=== PATIENT | female | born 1930 | race Caucasian/White ===

== ENCOUNTER 2016-08-25 18:42 | Emergency (ER) | payer MEDICARE, BC ==
[2016-08-25 18:42] VITALS: BP 174/86
--- OUTSIDE RECORDS SUMMARY | 2016-08-25 22:09 | XMS REPORT | Continuity of Care Document ---
:1930 Author Organization [facility] ([facility]) Address [address] [place] [address] Phone [phone] Care Team Providers Name Role Phone Kathy Grace Primary Care Provider [phone] Source Comments This disclosure is being made pursuant to the Care Everywhere program, applicable federal and state laws, and may not contain all informaitonavailable regarding this patient.[facility] ([facility]) Active Allergies and Adverse Reactions Allergen Noted Date Severity Reactions Comments Penicillins 02/15/2015 Unknown Current Medications Prescription Sig. Disp. Refills Start Date End Date Status HYDROcodone-acetaminophe take 1 tablet by 02/24/2014 Active n 5-325 mg per tablet oral route every 6 hours as needed for pain lisinopril 2.5 mg tablet Take 1 Tab by mouth 04/28/2013 Active daily metoPROLol succinate 25 Take 1 Tab by mouth 10/12/2013 Active mg XL tablet daily pantoprazole 40 mg EC Take 40 mg by mouth Active tablet daily aspirin 81 mg EC tablet Take 1 Tab (81 mg 30 Tab 11 02/17/2015 Active total) by mouth daily atorvastatin 20 mg Take 20 mg by mouth 08/25/2015 Active tablet every evening. levothyroxine 125 mcg Take 125 mcg by 08/25/2015 Active tablet mouth every morning before breakfast. tiZANidine 2 mg tablet Take 2 mg by mouth 08/10/2015 Active 3 times daily as needed. acetaminophen 325 mg Take 650 mg by Active tablet mouth 4 times daily. menthol (ARCTIC RELIEF) Apply topically as Active 3.5 % topical gel needed. calcium carbonate Take 1 tablet by Active (CALTRATE 600 + D) 1500 mouth 2 times mg (600 mg Ca) daily. -cholecalciferol 800 unit chewable tablet ondansetron 4 mg tablet Take 4 mg by mouth Active every 6 hours as needed. oxybutynin 5 mg tablet Take 5 mg by mouth Active daily. zolpiDEM 5 mg tablet Take by mouth at Active bedtime as needed. Active Problems Problem Noted Date CAD in [place] artery 02/19/2015 Overview: 1. Coronary artery disease with complex mid-LAD lesion status post overlapping VeriFLEX 3.5 x 12 and 2.75 x 12 mm bare-metal stents. 2. 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 3. Ischemic cardiomyopathy with anterior hypokinesis and EF of 45%. 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 Pulse 60 07/10/2016 11:29 AM SCREEN MACHINE OPERATOR Temperature - - Respiratory Rate - - Height 1.524 m (5') 10/06/2015 11:10 AM CDT Weight 68.04 kg (150 lb) 07/10/2016 11:29 AM SCREEN MACHINE OPERATOR Body Mass Index 29.3 07/10/2016 11:29 AM SCREEN MACHINE OPERATOR Oxygen Saturation 95% 10/06/2015 11:10 AM CDT Plan of Care Date Type Specialty Providers Description 11/27/2016 Appointment [facility], Chief Comp: Patient MD Reported Reason For [address] [place] [address] [phone] (Fax) Health Maintenance Due Date Last Done Comments Hepatitis B Vaccine (1 of 3 - Primary Series) 1930 Tdap Vaccine 1941 Lipid Disorder Screening 1948 Td Vaccine 1948 Zoster Vaccine 1990 Pneumococcal Vaccine (1 of 2 - PCV13) 1995 Influenza Vaccine: Seasonal (#1) 02/05/2016 05/01/2015 Results from Last 3 Months Not on file
--- OUTSIDE RECORDS SUMMARY | 2016-08-25 22:09 | XMS REPORT | CCD ---
:1930 Author Name IVELISSE PARISI Address [address] [facility] Unavailable [place], [place] [id number] Care Team Providers Name Role Phone MIAH BUSTOS Attending Physician Unavailable Vital Signs Unknown or Not Available. Allergies Allergy Code Allergy Type Reaction Status PCN (penicillin) 0 Drug allergy Active Procedures Unknown or Not Available. History of Immunizations Immunization Code Date pneumococcal, unspecified formulation 109 Unknown Influenza, high dose seasonal 135 05/01/2015 no vaccine administered 998 1930 Problems Problem Code Start Date Resolved Date Status ACUTE SUBENDOCARDIAL INFARCTION, INITIAL 36660219 11/14/2012 Active EPISODE OF CARE HYPOTHYROIDISM 49446496 11/14/2012 Active GI bleeding 50187597 Active Results Unknown or Not Available. Active Medications Medication Code Dose Units Frequency Route Modification Start Date/Time Tylenol ES 500MG 691650 2 TABLET THREE TIMES A BY MOUTH 12/08/2014 Oral Tablet DAY 09:39 Prescription Detail TAKE 2 TABLET BY MOUTH THREE TIMES A DAY for arthritis pain Atorvastatin Calcium 20MG 793083 20 MILLIGRAMS BEFORE BED ORAL 2014 09:37 Oral Tablet Prescription Detail TAKE 20 MILLIGRAMS ORAL BEFORE BED Calcium 551568 600 MILLIGRAMS TWICE DAILY BY MOUTH 12/08/2014 09:37 Carbonate/Vitamin D W/FOOD 600MG-400IU Oral Tablet Prescription Detail TAKE 600 MILLIGRAMS BY MOUTH TWICE DAILY W/FOOD Centrum [id number] Oral Tablet 6406385 1 EACH DAILY ORAL 10/2014 09:37 Prescription Detail TAKE 1 EACH ORAL DAILY Furosemide 20MG Oral Tablet 974019 20 MILLIGRAMS DAILY ORAL 12/08/2014 09:37 Prescription Detail TAKE 20 MILLIGRAMS ORAL DAILY HYDROcodone bitartrate-acetaminophen 897465 1 EACH NEEDED ORAL 12/08 09:37 5MG-500MG Oral Tablet Prescription Detail TAKE 1 EACH ORAL NEEDED Levothyroxine 125MCG Oral Tablet 303054 125 MCG DAILY ORAL 12/08/2014 09:37 Prescription Detail TAKE 125 MCG ORAL DAILY Lisinopril 2.5MG Oral Tablet 765640 2.5 MILLIGRAMS DAILY ORAL 2014 09:37 Prescription Detail TAKE 2.5 MILLIGRAMS ORAL DAILY Metoprolol Succinate 25MG Oral 712666 25 MILLIGRAMS DAILY ORAL 2014 09:37 Tablet, Extended Release Prescription Detail TAKE 25 MILLIGRAMS ORAL DAILY Nitroglycerin 0.4MG 614940 0.4 MILLIGRAMS NEEDED SUBLINGUAL 2014 09:37 Sublingual Tablet Prescription Detail PL[address] 0.4 MILLIGRAMS SUBLINGUAL NEEDED Protonix 40MG Oral 326506 40 MILLIGRAMS DAILY BEFORE MEAL BY MOUTH 10/2014 09:37 Tablet, Enteric Coated Prescription Detail TAKE 40 MILLIGRAMS BY MOUTH DAILY BEFORE MEAL Sucralfate 1GM Oral 997899 1 GM FOUR TIMES DAILY AC BY MOUTH 2014 09:37 Tablet Prescription Detail TAKE 1 GM BY MOUTH FOUR TIMES DAILY AC Medications Administered During Visit Unknown or Not Available. Encounters Encounter Diagnosis Diagnosis Code Start Date Primary osteoarthritis, right shoulder [id number] 01/30/2016 Social History Smoking Status Code Start Date End Date Never smoker [id number] Patient Decision Aids Unknown or Not Available. Discharge Instructions You were admitted to [facility] on 01/30/2016 13:22 with a principal diagnosis of Primary osteoarthritis, right shoulder You were discharged from [facility] on 01/30/2016 13:22 Should you have any questions prior to discharge, please contact a member of your healthcare team. If you have left the hospital and have any questions, please contact your primary care physician. Chief Complaint and Reason For Visit Unknown or Not Available. Function Status Unknown or Not Available. Plan of Care Unknown or Not Available. Referral/Transition of Care Unknown or Not Available.
--- OUTSIDE RECORDS SUMMARY | 2016-08-25 22:09 | XMS REPORT | CCD ---
:1930 Author Name IVELISSE PARISI Address [address] [facility] Unavailable [place], [place] [id number] Care Team Providers Name Role Phone MIAH [...] Resolved Date Status ACUTE SUBENDOCARDIAL INFARCTION, INITIAL 53323475 11/14/2012 Active EPISODE OF CARE HYPOTHYROIDISM 07655080 11/14/2012 Active GI bleeding 25326768 Active Results Unknown or Not Available. Active Medications Medication Code Dose Units Frequency Route Modification Start Date/Time Tylenol ES 500MG 684452 2 TABLET THREE TIMES A BY MOUTH 12/08/2014 Oral Tablet DAY 09:39 Prescription Detail TAKE 2 TABLET BY MOUTH THREE TIMES A DAY for arthritis pain Atorvastatin Calcium 20MG 133246 20 MILLIGRAMS BEFORE BED ORAL 2014 09:37 Oral Tablet Prescription Detail TAKE 20 MILLIGRAMS ORAL BEFORE BED Calcium 477979 600 MILLIGRAMS TWICE DAILY BY MOUTH 12/08/2014 09:37 Carbonate/Vitamin D W/FOOD 600MG-400IU Oral Tablet Prescription Detail TAKE 600 MILLIGRAMS BY MOUTH TWICE DAILY W/FOOD Centrum [id number] Oral Tablet 5882863 1 EACH DAILY ORAL 10/2014 09:37 Prescription Detail TAKE 1 EACH ORAL DAILY Furosemide 20MG Oral Tablet 643181 20 MILLIGRAMS DAILY ORAL 12/08/2014 09:37 Prescription Detail TAKE 20 MILLIGRAMS ORAL DAILY HYDROcodone bitartrate-acetaminophen 134028 1 EACH NEEDED ORAL 12/08 09:37 5MG-500MG Oral Tablet Prescription Detail TAKE 1 EACH ORAL NEEDED Levothyroxine 125MCG Oral Tablet 212641 125 MCG DAILY ORAL 12/08/2014 09:37 Prescription Detail TAKE 125 MCG ORAL DAILY Lisinopril 2.5MG Oral Tablet 921927 2.5 MILLIGRAMS DAILY ORAL 2014 09:37 Prescription Detail TAKE 2.5 MILLIGRAMS ORAL DAILY Metoprolol Succinate 25MG Oral 518763 25 MILLIGRAMS DAILY ORAL 2014 09:37 Tablet, Extended Release Prescription Detail TAKE 25 MILLIGRAMS ORAL DAILY Nitroglycerin 0.4MG 892371 0.4 MILLIGRAMS NEEDED SUBLINGUAL 2014 09:37 Sublingual Tablet Prescription Detail PLACE 0.4 MILLIGRAMS SUBLINGUAL NEEDED Protonix 40MG Oral 214101 40 MILLIGRAMS DAILY BEFORE MEAL BY MOUTH 10/2014 09:37 Tablet, Enteric Coated Prescription Detail TAKE 40 MILLIGRAMS BY MOUTH DAILY BEFORE MEAL Sucralfate 1GM Oral 584695 1 GM FOUR TIMES DAILY AC BY MOUTH 2014 09:37 Tablet Prescription Detail TAKE 1 GM BY MOUTH FOUR TIMES DAILY AC Medications Administered During Visit Unknown or Not Available. Encounters Encounter Diagnosis Diagnosis Code Start Date Primary osteoarthritis, left shoulder [id number] 02/22/2016 Social History Smoking Status Code Start Date End Date Never smoker [id number] Patient Decision Aids Unknown or Not Available. Discharge Instructions You were admitted to [facility] on 02/22/2016 13:55 with a principal diagnosis of Primary osteoarthritis, left shoulder You were discharged from [facility] on 02/22/2016 13:55 Should you have any questions prior to [...]
--- OUTSIDE RECORDS SUMMARY | 2016-08-25 22:09 | XMS REPORT | CCD ---
:1930 Author Name IVELISSE PARISI Address [address] [facility] Unavailable [place], [place] [id number] Care Team Providers Name Role Phone MIAH BUSTOS Attending Physician Unavailable Vital Signs Unknown or Not Available. Allergies Allergy Code Allergy Type Reaction Status PCN (penicillin) 0 Drug allergy Active Procedures Unknown or Not Available. History of Immunizations Immunization Code Date pneumococcal, unspecified formulation 109 Unknown Problems Problem Code Start Date Resolved Date Status ACUTE SUBENDOCARDIAL INFARCTION, INITIAL 76963356 11/14/2012 Active EPISODE OF CARE HYPOTHYROIDISM 84394569 11/14/2012 Active GI bleeding 81453182 Active Results Unknown or Not Available. Active Medications Medication Code Dose Units Frequency Route Modification Start Date/Time Tylenol ES 500MG 458050 2 TABLET THREE TIMES A BY MOUTH 12/08/2014 Oral Tablet DAY 09:39 Prescription Detail TAKE 2 TABLET BY MOUTH THREE TIMES A DAY for arthritis pain Atorvastatin Calcium 20MG 021119 20 MILLIGRAMS BEFORE BED ORAL 2014 09:37 Oral Tablet Prescription Detail TAKE 20 MILLIGRAMS ORAL BEFORE BED Calcium 357776 600 MILLIGRAMS TWICE DAILY BY MOUTH 12/08/2014 09:37 Carbonate/Vitamin D W/FOOD 600MG-400IU Oral Tablet Prescription Detail TAKE 600 MILLIGRAMS BY MOUTH TWICE DAILY W/FOOD Centrum [id number] Oral Tablet 9267909 1 EACH DAILY ORAL 10/2014 09:37 Prescription Detail TAKE 1 EACH ORAL DAILY Furosemide 20MG Oral Tablet 621247 20 MILLIGRAMS DAILY ORAL 12/08/2014 09:37 Prescription Detail TAKE 20 MILLIGRAMS ORAL DAILY HYDROcodone bitartrate-acetaminophen 519532 1 EACH NEEDED ORAL 12/08 09:37 5MG-500MG Oral Tablet Prescription Detail TAKE 1 EACH ORAL NEEDED Levothyroxine 125MCG Oral Tablet 376244 125 MCG DAILY ORAL 12/08/2014 09:37 Prescription Detail TAKE 125 MCG ORAL DAILY Lisinopril 2.5MG Oral Tablet 176468 2.5 MILLIGRAMS DAILY ORAL 2014 09:37 Prescription Detail TAKE 2.5 MILLIGRAMS ORAL DAILY Metoprolol Succinate 25MG Oral 432458 25 MILLIGRAMS DAILY ORAL 2014 09:37 Tablet, Extended Release Prescription Detail TAKE 25 MILLIGRAMS ORAL DAILY Nitroglycerin 0.4MG 217690 0.4 MILLIGRAMS NEEDED SUBLINGUAL 2014 09:37 Sublingual Tablet Prescription Detail PLACE 0.4 MILLIGRAMS SUBLINGUAL NEEDED Protonix 40MG Oral 693101 40 MILLIGRAMS DAILY BEFORE MEAL BY MOUTH 10/2014 09:37 Tablet, Enteric Coated Prescription Detail TAKE 40 MILLIGRAMS BY MOUTH DAILY BEFORE MEAL Sucralfate 1GM Oral 443459 1 GM FOUR TIMES DAILY AC BY MOUTH 2014 09:37 Tablet Prescription Detail TAKE 1 GM BY MOUTH FOUR TIMES DAILY AC Medications Administered During Visit Unknown or Not Available. Encounters Encounter Diagnosis Diagnosis Code Start Date LOC OSTEOARTH NOS-SHLDER 26024 03/01/2015 Social History Smoking Status Code Start Date End Date Never smoker [id number] Patient Decision Aids Unknown or Not Available. Discharge Instructions You were admitted to [facility] on 03/01/2015 with a principal diagnosis of LOC OSTEOARTH NOS-SHLDER. You were discharged from [facility] on 03/01/2015. Should you have any questions prior to [...]
--- OUTSIDE RECORDS SUMMARY | 2016-08-25 22:09 | XMS REPORT | CCD ---
:1930 Author Name IVELISSE PARISI Address [address] Unavailable [place], [place] [id number] Care Team Providers Name Role Phone MIAH BUSTOS Attending Physician Unavailable Vital Signs Unknown or Not Available. Allergies Allergy Code Allergy Type Reaction Status PCN (penicillin) 0 Drug allergy Active Procedures Unknown or Not Available. History of Immunizations Unknown or Not Available. Problems Problem Code Start Date Resolved Date Status ACUTE SUBENDOCARDIAL INFARCTION, INITIAL 15927423 11/14/2012 Active EPISODE OF CARE HYPOTHYROIDISM 47131382 11/14/2012 Active Results Unknown or Not Available. Active Medications Unknown or Not Available. Medications Administered During Visit Unknown or Not Available. Encounters Encounter Diagnosis Diagnosis Code Start Date OSTEOARTHROS NOS-L LEG 76678 11/29/2014 Social History Smoking Status Code Start Date End Date Never smoker [id number] Patient Decision Aids Unknown or Not Available. Discharge Instructions You were admitted to [facility] on 11/29/2014 with a principal diagnosis of OSTEOARTHROS NOS-L LEG. You were discharged from [facility] on 11/29/2014. Should you have any questions prior to [...]
--- OUTSIDE RECORDS SUMMARY | 2016-08-25 22:09 | XMS REPORT | CCD ---
:1930 Author Name JACK PATRICIA Address [address] [facility] Unavailable [place], [place] [id number] Care Team Providers Name Role Phone SHANNAN HAIRSTON Attending Physician Unavailable RENETTA SOLIS Er Physician 1 Unavailable F., ALESHA FERNANDEZ Registered Nurse Unavailable M., BRITNEY Sahu Registered Nurse Unavailable S., ORLANDO Montoya Registered Nurse Unavailable B., ALESHA Marie Nursing Staff Unavailable L., JUSTIN [facility] Unavailable P., IAN Webster Registered Nurse Unavailable F., KRYSTLE ALONSO Registered Nurse Unavailable P., FLOR Registered Nurse Unavailable S., BRANDON Piña Registered Nurse Unavailable C., TENNILLE Registered Nurse Unavailable C., KAILASH HERNANDEZ Registered Nurse Unavailable Vital Signs Vital Sign Value Unit Date/Time Recent/Initial? BP Systolic 118 mmHg 12/05/2014 11:54 Initial VS BP Diastolic 58 mmHg 12/05/2014 11:54 Initial VS Respiratory Rate 18 bpm 12/05/2014 11:54 Initial VS Heart Rate 80 bpm 12/05/2014 11:54 Initial VS O2 % BldC Oximetry 97 % 12/05/2014 11:54 Initial VS Body Temperature 98.1 degrees 12/05/2014 11:54 Initial VS Weight Measured 141.7 lbs 12/05/2014 15:10 Initial VS Height 60 in 12/05/2014 15:10 Initial VS BMI (Body Mass Index) 27.67 kg/m^2 12/05/2014 15:10 Initial VS BSA (Body Surface Area) 1.65 m^2 12/05/2014 15:10 Initial VS Weight Measured 128.4 lbs 12/08/2014 06:10 Most Recent VS Height 60 in 12/08/2014 06:10 Most Recent VS BMI (Body Mass Index) 25.08 kg/m^2 12/08/2014 06:10 Most Recent VS BSA (Body Surface Area) 1.57 m^2 12/08/2014 06:10 Most Recent VS BP Systolic 107 mmHg 12/08/2014 11:15 Most Recent VS BP Diastolic 60 mmHg 12/08/2014 11:15 Most Recent VS Respiratory Rate 16 bpm 12/08/2014 11:15 Most Recent VS Heart Rate 76 bpm 12/08/2014 11:15 Most Recent VS O2 % BldC Oximetry 97 % 12/08/2014 11:15 Most Recent VS Body Temperature 98.6 degrees 12/08/2014 11:15 Most Recent VS Allergies Allergy Code Allergy Type Reaction Status PCN (penicillin) 0 Drug allergy Active Procedures Procedure Code Procedure Type Date Transfusion of packed cells 9904 ICD-9 CM, Volume 3 12/05/2014 PT EVALUATE 440338698 SNOMED CT 12/06/2014 THERAPY SCREENING 980643651 SNOMED CT 12/05/2014 History of Immunizations Immunization Code Date pneumococcal, unspecified formulation 109 Unknown Problems Problem Code Start Date Resolved Date Status ACUTE SUBENDOCARDIAL INFARCTION, INITIAL 84294665 11/14/2012 Active EPISODE OF CARE HYPOTHYROIDISM 86574889 11/14/2012 Active GI bleeding 74033183 Active Results BASIC METABOLIC PANEL - Collect Date/Time: 12/07/2014 07:14 Test Name Code Test Result Test Units Test Ref Range GLUCOSE 96 mg/dL L=74 H=106 SODIUM 142 mmol/L L=136 H=145 POTASSIUM 4.4 mmol/L L=3.5 H=5.1 CHLORIDE 107 mmol/L L=98 H=107 CO2 28 mmol/L L=21 H=32 BUN 14.0 mg/dL L=7.0 H=18.0 CREATININE 1.1 mg/dL L=0.6 H=1.0 BUN/CREAT 12.7 L=7.6 H=21.2 CALCIUM 8.5 mg/dL L=8.6 H=10.1 ANION GAP 11.9 mmol/L L=7.0 H=16.0 AGE 84 YEARS GFR 50.29 ml/min BASIC METABOLIC PANEL - Collect Date/Time: 12/06/2014 06:50 Test Name Code Test Result Test Units Test Ref Range GLUCOSE 98 mg/dL L=74 H=106 SODIUM 144 mmol/L L=136 H=145 POTASSIUM 4.3 mmol/L L=3.5 H=5.1 CHLORIDE 110 mmol/L L=98 H=107 CO2 27 mmol/L L=21 H=32 BUN 30.0 mg/dL L=7.0 H=18.0 CREATININE 1.1 mg/dL L=0.6 H=1.0 BUN/CREAT 27.3 L=7.6 H=21.2 CALCIUM 7.9 mg/dL L=8.6 H=10.1 ANION GAP 11.0 mmol/L L=7.0 H=16.0 AGE 84 YEARS GFR 50.29 ml/min COMPREHENSIVE METABOLIC PANEL - Collect Date/Time: 12/05/2014 13:05 Test Name Code Test Result Test Units Test Ref Range GLUCOSE 104 mg/dL L=74 H=106 SODIUM 140 mmol/L L=136 H=145 POTASSIUM 4.3 mmol/L L=3.5 H=5.1 CHLORIDE 104 mmol/L L=98 H=107 CO2 27 mmol/L L=21 H=32 BUN 55.0 mg/dL L=7.0 H=18.0 CREATININE 1.2 mg/dL L=0.6 H=1.0 BUN/CREAT 45.8 L=7.6 H=21.2 CALCIUM 8.1 mg/dL L=8.6 H=10.1 TOTAL BILI 0.5 mg/dL L=0.2 H=1.0 TOTAL PROTEIN 6.0 g/dL L=6.4 H=8.2 ALBUMIN 3.0 g/dL L=3.4 H=5.0 A/G RATIO 1.0 ALKALINE PHOS 62 IU/L L=50 H=136 AST/SGOT 10 IU/L L=15 H=37 ALT/SGPT 16 IU/L L=12 H=78 ANION GAP 13.0 mmol/L L=7.0 H=16.0 AGE 84 YEARS GFR 45.49 ml/min CBC W/DIFF - Collect Date/Time: 12/07/2014 07:14 Test Name Code Test Result Test Units Test Ref Range WBC 6690-2 10.0 K/uL L=3.2 H=10.0 RBC 789-8 3.87 M/uL L=4.00 H=5.20 HEMOGLOBIN 718-7 11.5 g/dL L=12.1 H=15.6 HEMATOCRIT 34.1 % L=35.0 H=47.0 MCV 88.1 fL L=81.0 H=101 MCH 29.7 PG L=26.0 H=38.0 MCHC 33.7 G/DL L=31.0 H=37.0 RDW-SD 42.6 FL L=37.0 H=54.0 RDW-CV 13.7 % L=11.0 H=16.0 PLATELETS 291 K/UL L=140 H=380 MPV 9.8 FL L=9.0 H=13.0 %GRAN 69.4 % L=0.0 H=75.0 %LYMPH 18.3 % L=0.0 H=50.0 %MONO 7.4 % L=0.0 H=14.0 %EOS 4.1 % L=0.0 H=6.0 %BASO 0.8 % L=0.0 H=1.0 #GRAN 6.93 K/UL L=1.80 H=7.80 #LYMPH 1.83 K/UL L=0.30 H=4.00 #MONO 0.74 K/UL L=0.00 H=0.70 #EOS 0.41 K/UL L=0.00 H=0.40 #BASO 0.08 K/UL L=0.00 H=0.10 SLIDE REVIEWED? NOT INDICATED N/A MANUAL DIFF NOT INDICATED N/A CBC W/DIFF - Collect Date/Time: 12/06/2014 06:50 Test Name Code Test Result Test Units Test Ref Range WBC 6690-2 11.8 K/uL L=3.2 H=10.0 RBC 789-8 3.72 M/uL L=4.00 H=5.20 HEMOGLOBIN 718-7 11.0 g/dL L=12.1 H=15.6 HEMATOCRIT 32.8 % L=35.0 H=47.0 MCV 88.2 fL L=81.0 H=101 MCH 29.6 PG L=26.0 H=38.0 MCHC 33.5 G/DL L=31.0 H=37.0 RDW-SD 41.9 FL L=37.0 H=54.0 RDW-CV 13.7 % L=11.0 H=16.0 PLATELETS 278 K/UL L=140 H=380 MPV 9.7 FL L=9.0 H=13.0 %GRAN 71.6 % L=0.0 H=75.0 %LYMPH 17.9 % L=0.0 H=50.0 %MONO 6.5 % L=0.0 H=14.0 %EOS 3.6 % L=0.0 H=6.0 %BASO 0.4 % L=0.0 H=1.0 #GRAN 8.43 K/UL L=1.80 H=7.80 #LYMPH 2.11 K/UL L=0.30 H=4.00 #MONO 0.77 K/UL L=0.00 H=0.70 #EOS 0.42 K/UL L=0.00 H=0.40 #BASO 0.05 K/UL L=0.00 H=0.10 SLIDE REVIEWED? NOT INDICATED N/A MANUAL DIFF NOT INDICATED N/A CBC W/DIFF - Collect Date/Time: 12/05/2014 13:05 Test Name Code Test Result Test Units Test Ref Range WBC 6690-2 15.4 K/uL L=3.2 H=10.0 RBC 789-8 3.82 M/uL L=4.00 H=5.20 HEMOGLOBIN 718-7 11.4 g/dL L=12.1 H=15.6 HEMATOCRIT 33.7 % L=35.0 H=47.0 MCV 88.2 fL L=81.0 H=101 MCH 29.8 PG L=26.0 H=38.0 MCHC 33.8 G/DL L=31.0 H=37.0 RDW-SD 40.3 FL L=37.0 H=54.0 RDW-CV 13.2 % L=11.0 H=16.0 PLATELETS 356 K/UL L=140 H=380 MPV 9.8 FL L=9.0 H=13.0 %GRAN 77.5 % L=0.0 H=75.0 %LYMPH 14.2 % L=0.0 H=50.0 %MONO 6.9 % L=0.0 H=14.0 %EOS 0.9 % L=0.0 H=6.0 %BASO 0.5 % L=0.0 H=1.0 #GRAN 11.94 K/UL L=1.80 H=7.80 #LYMPH 2.18 K/UL L=0.30 H=4.00 #MONO 1.07 K/UL L=0.00 H=0.70 #EOS 0.14 K/UL L=0.00 H=0.40 #BASO 0.07 K/UL L=0.00 H=0.10 SLIDE REVIEWED? NOT INDICATED N/A MANUAL DIFF NOT INDICATED N/A HEMOGLOBIN - Collect Date/Time: 12/05/2014 18:00 Test Name Code Test Result Test Units Test Ref Range HEMOGLOBIN 718-7 9.7 g/dL L=12.1 H=15.6 HEMOGLOBIN AND HEMATOCRIT - Collect Date/Time: 12/08/2014 07:12 Test Name Code Test Result Test Units Test Ref Range HEMOGLOBIN 718-7 11.7 g/dL L=12.1 H=15.6 HEMATOCRIT 34.4 % L=35.0 H=47.0 HEMOGLOBIN AND HEMATOCRIT - Collect Date/Time: 12/06/2014 16:03 Test Name Code Test Result Test Units Test Ref Range HEMOGLOBIN 718-7 11.2 g/dL L=12.1 H=15.6 HEMATOCRIT 32.8 % L=35.0 H=47.0 BB CROSSMATCH 1ST UNIT - Collect Date/Time: 12/05/2014 22:36 Test Name Code Test Result Test Units Test Ref Range ABO/RH O POSITIVE N/A ANTIBODY SCRN NEGATIVE N/A DONOR ABO/RH O POSITIVE N/A PRODUCT PRBC N/A CROSSMATCH COMPATIBLE N/A BB TYPE AND SCREEN - Collect Date/Time: 12/05/2014 14:12 Test Name Code Test Result Test Units Test Ref Range ABO/RH O POSITIVE N/A ANTIBODY SCRN NEGATIVE N/A Active Medications Medication Code Dose Units Frequency Route Modification Start Date/Time Tylenol ES 850427 2 TABLET THREE TIMES BY MOUTH 12/08/2014 500MG Oral A DAY 09:39 Tablet Atorvastatin 026619 20 MILLIGRAMS BEFORE BED ORAL 12/08/2014 Calcium 20MG 09:37 Oral Tablet Calcium 986916 600 MILLIGRAMS TWICE DAILY BY MOUTH 12/08/2014 Carbonate/Vitam W/FOOD 09:37 in D 600MG-400IU Oral Tablet Centrum 9324221 1 EACH DAILY ORAL 12/08/2014 [id number] 09:37 G-200 Oral Tablet Furosemide 20MG 831556 20 MILLIGRAMS DAILY ORAL 12/08/2014 Oral Tablet 09:37 HYDROcodone 025671 1 EACH NEEDED ORAL 12/08/2014 bitartrate-acet 09:37 aminophen 5MG-500MG Oral Tablet Levothyroxine 774097 125 MCG DAILY ORAL 12/08/2014 125MCG Oral 09:37 Tablet Lisinopril 516725 2.5 MILLIGRAMS DAILY ORAL 12/08/2014 2.5MG Oral 09:37 Tablet Metoprolol 973064 25 MILLIGRAMS DAILY ORAL 12/08/2014 Succinate 25MG 09:37 Oral Tablet, Extended Release Nitroglycerin 160081 0.4 MILLIGRAMS NEEDED SUBLINGUAL 12/08/2014 0.4MG 09:37 Sublingual Tablet Protonix 40MG 048797 40 MILLIGRAMS DAILY BY MOUTH 12/08/2014 Oral Tablet, BEFORE MEAL 09:37 Enteric Coated Sucralfate 1GM 671120 1 GM FOUR TIMES BY MOUTH 12/08/2014 Oral Tablet DAILY AC 09:37 Medications Administered During Visit Medication Dose Units Frequency Route Date/Time of Last Dose PANTOPRAZOLE(PROTONIX) CONT IV IV CONT 12/05/2014 18:21 DRIP:0.8 MG/ ML SODIUM CHLORIDE 0.9% IV 1000 ML 100 ML/HR IV FLUID 12/05/2014 21:39 SOLN : 1000ML ACETAMINOPHEN(TYLENOL)TA 650 MG PRN Q6 HR ORAL 12/06/2014 20:51 B:325MG LEVOTHYROX(SYNTHROID) : 0.125 MG DAILY ORAL 12/08/2014 06:10 0.125MG SUCRALFATE (CARAFATE) 1 GM FOUR TIMES DAILY AC ORAL 12/08/2014 08:11 TAB : 1GM PANTOPRAZOLE /50 ML 40 MG TWICE DAILY IVPB 12/08/2014 06:10 NS:40MG PREDEFINED METOPROLOL succ *ER* 12.5 MG DAILY ORAL 12/08/2014 08:11 (TOPROL XL) :25MG LISINOPRIL (ZESTRIL) 2.5 MG DAILY ORAL 12/08/2014 08:11 TAB: 2.5MG ATORVASTATIN (LIPITOR) 20 MG *BEDTIME ORAL 12/07/2014 20:38 TAB : 20MG CALCIUM/VIT D(CALTRATE) 600 MG TWICE DAILY W/FOOD ORAL 12/08/2014 08:11 TAB:600MG/400IU Encounters Encounter Diagnosis Diagnosis Code Start Date HEMATEMESIS 5780 12/05/2014 Social History Smoking Status Code Start Date End Date Never smoker [id number] Patient Decision Aids Patient Decision Aid Acute Abdominal Pain Capsule Endoscopy [facility] Portal Instructions Discharge Instructions You were admitted to on 12/05/2014 with a principal diagnosis of HEMATEMESIS. You had the following procedures done:PACKED CELL TRANSFUSION You were discharged from on 12/08/2014. Should you have any questions prior to discharge, please contact a member of your healthcare team. If you have left the hospital and have any questions, please contact your primary care physician.DIET:CONTINUE YOUR USUAL DIETMedication Instructions:Patient/Family Verbalizes Understanding, Needs Reinforcement.Discharge med list created by physician.ActivityActivity as tolerated.Treatment instructions:AVOID NSAIDs (NON-STEROIDAL ANTI-INFLAMMATORY DRUGS)MAY USE TYLENOL 1000 MG EVERY EIGHT HOURS FOR ARTHRITIS PAINGeneral Instructions/Notify Physician if:NAUSEA OR VOMITING, COFFEE GROUND EMESIS, FEVER GREATER THAN 100.5.SHORTNESS OF BREATH, CHEST PAINHome EquipmentPRESCRIPTION FOR BEDSIDE COMMODE Chief Complaint and Reason For Visit Chief Complaint Date of Onset GI BLEED Function Status Unknown or Not Available. Plan of Care Unknown or Not Available. Referral/Transition of Care Reason for Referral: FOLLOW-UP APPOINTMENT Referring Provider: MIRANDA MCCLELLAND Address: [address] [place] [id number] Appointment Date: 12/15/2014 Additional Information: APPOINTMENT IS AT 11:30 AM
--- OUTSIDE RECORDS SUMMARY | 2016-08-25 22:10 | XMS REPORT | CCD ---
:1930 Author Name YOSEPH SAUCEDO Address [address] [facility] Unavailable [place], [place] [id number] Care Team Providers Name Role Phone STAS JEAN Attending Physician Unavailable Vital Signs Unknown or Not Available. Allergies Allergy Code Allergy Type Reaction Status PCN (penicillin) 0 Drug allergy Active Procedures Procedure Code Procedure Type Date LIPID PANEL 54738258 SNOMED CT 11/02/2014 History of Immunizations Unknown or Not Available. Problems Problem Code Start Date Resolved Date Status ACUTE SUBENDOCARDIAL INFARCTION, INITIAL 83645172 11/14/2012 Active EPISODE OF CARE HYPOTHYROIDISM 07582937 11/14/2012 Active Results COMPREHENSIVE METABOLIC PANEL - Collect Date/Time: 11/02/2014 11:44 Test Name Code Test Result Test Units Test Ref Range GLUCOSE 88 mg/dL L=74 H=106 SODIUM 143 mmol/L L=136 H=145 POTASSIUM 4.3 mmol/L L=3.5 H=5.1 CHLORIDE 105 mmol/L L=98 H=107 CO2 29 mmol/L L=21 H=32 BUN 28.0 mg/dL L=7.0 H=18.0 CREATININE 1.2 mg/dL L=0.6 H=1.0 BUN/CREAT 23.3 L=7.6 H=21.2 CALCIUM 8.7 mg/dL L=8.6 H=10.1 TOTAL BILI 0.5 mg/dL L=0.2 H=1.0 TOTAL PROTEIN 6.7 g/dL L=6.4 H=8.2 ALBUMIN 3.5 g/dL L=3.4 H=5.0 A/G RATIO 1.1 ALKALINE PHOS 84 IU/L L=50 H=136 AST/SGOT 16 IU/L L=15 H=37 ALT/SGPT 19 IU/L L=12 H=78 ANION GAP 13.5 mmol/L L=7.0 H=16.0 AGE 84 YEARS GFR 45.49 ml/min LIPID PANEL - Collect Date/Time: 11/02/2014 11:44 Test Name Code Test Result Test Units Test Ref Range CHOLESTEROL 2093-3 114 mg/dL L=0 H=200 TRIGLYCERIDES 2571-8 158 mg/dL L=0 H=200 HDL 2085-9 50 mg/dL L=40 H=60 LDL 2089-1 32 mg/dL L=0 H=160 CHOL/HDL 9830-1 2.3 L=0.0 H=6.7 CBC W/DIFF - Collect Date/Time: 11/02/2014 11:44 Test Name Code Test Result Test Units Test Ref Range WBC 6690-2 9.2 K/uL L=3.2 H=10.0 RBC 789-8 4.72 M/uL L=4.00 H=5.20 HEMOGLOBIN 718-7 14.2 g/dL L=12.1 H=15.6 HEMATOCRIT 41.6 % L=35.0 H=47.0 MCV 88.1 fL L=81.0 H=101 MCH 30.1 PG L=26.0 H=38.0 MCHC 34.1 G/DL L=31.0 H=37.0 RDW-SD 43.1 FL L=37.0 H=54.0 RDW-CV 13.6 % L=11.0 H=16.0 PLATELETS 318 K/UL L=140 H=380 MPV 9.8 FL L=9.0 H=13.0 %GRAN 64.1 % L=0.0 H=75.0 %LYMPH 22.8 % L=0.0 H=50.0 %MONO 9.4 % L=0.0 H=14.0 %EOS 2.6 % L=0.0 H=6.0 %BASO 1.1 % L=0.0 H=1.0 #GRAN 5.90 K/UL L=1.80 H=7.80 #LYMPH 2.10 K/UL L=0.30 H=4.00 #MONO 0.87 K/UL L=0.00 H=0.70 #EOS 0.24 K/UL L=0.00 H=0.40 #BASO 0.10 K/UL L=0.00 H=0.10 SLIDE REVIEWED? NOT INDICATED N/A MANUAL DIFF NOT INDICATED N/A Active Medications Unknown or Not Available. Medications Administered During Visit Unknown or Not Available. Encounters Encounter Diagnosis Diagnosis Code Start Date AC MYOC INFAR UNSPEC SIT UNSPEC 47374 11/02/2014 Social History Smoking Status Code Start Date End Date Never smoker [id number] Patient Decision Aids Unknown or Not Available. Discharge Instructions You were admitted to [facility] on 11/02/2014 with a principal diagnosis of AC MYOC INFAR UNSPEC SIT UNSPEC. You were discharged from [facility] on 11/02/2014. Should you have any questions prior to [...]
--- OUTSIDE RECORDS SUMMARY | 2016-08-25 22:10 | XMS REPORT | CCD ---
:1930 Author Name YOSEPH SAUCEDO Address [address] [facility] Unavailable [place], [place] [phone] Care Team Providers Name Role Phone STAS JEAN Attending Physician Unavailable Vital Signs Unknown or Not Available. Allergies Allergy Code Allergy Type Reaction Status PCN (penicillin) 0 Drug allergy Active Procedures Procedure Code Procedure Type Date UPPER GI SERIES 8762 ICD-9 CM, Volume 3 01/10/2015 BARIUM SWALLOW 8761 ICD-9 CM, Volume 3 01/10/2015 UGI W/AIR 131179526 SNOMED CT 01/10/2015 LIPID PANEL 55508857 SNOMED CT 01/10/2015 History of Immunizations Immunization Code Date pneumococcal, unspecified formulation 109 Unknown Problems Problem Code Start Date Resolved Date Status ACUTE SUBENDOCARDIAL INFARCTION, INITIAL 34308432 11/14/2012 Active EPISODE OF CARE HYPOTHYROIDISM 99451554 11/14/2012 Active GI bleeding 09490564 Active Results COMPREHENSIVE METABOLIC PANEL - Collect Date/Time: 01/10/2015 09:20 Test Name Code Test Result Test Units Test Ref Range GLUCOSE 101 mg/dL L=74 H=106 SODIUM 142 mmol/L L=136 H=145 POTASSIUM 4.1 mmol/L L=3.5 H=5.1 CHLORIDE 107 mmol/L L=98 H=107 CO2 27 mmol/L L=21 H=32 BUN 17.0 mg/dL L=7.0 H=18.0 CREATININE 1.0 mg/dL L=0.6 H=1.0 BUN/CREAT 17.0 L=7.6 H=21.2 CALCIUM 8.8 mg/dL L=8.6 H=10.1 TOTAL BILI 0.5 mg/dL L=0.2 H=1.0 TOTAL PROTEIN 6.3 g/dL L=6.4 H=8.2 ALBUMIN 3.0 g/dL L=3.4 H=5.0 A/G RATIO 0.9 ALKALINE PHOS 71 IU/L L=50 H=136 AST/SGOT 13 IU/L L=15 H=37 ALT/SGPT 16 IU/L L=12 H=78 ANION GAP 12.5 mmol/L L=7.0 H=16.0 AGE 84 YEARS GFR 56.14 ml/min LIPID PANEL - Collect Date/Time: 01/10/2015 09:20 Test Name Code Test Result Test Units Test Ref Range CHOLESTEROL 2093-3 107 mg/dL L=0 H=200 TRIGLYCERIDES 2571-8 111 mg/dL L=0 H=200 HDL 2085-9 49 mg/dL L=40 H=60 LDL 2089-1 36 mg/dL L=0 H=160 CHOL/HDL 9830-1 2.2 L=0.0 H=6.7 CBC W/DIFF - Collect Date/Time: 01/10/2015 09:20 Test Name Code Test Result Test Units Test Ref Range WBC 6690-2 7.1 K/uL L=3.2 H=10.0 RBC 789-8 4.31 M/uL L=4.00 H=5.20 HEMOGLOBIN 718-7 12.5 g/dL L=12.1 H=15.6 HEMATOCRIT 37.0 % L=35.0 H=47.0 MCV 85.8 fL L=81.0 H=101 MCH 29.0 PG L=26.0 H=38.0 MCHC 33.8 G/DL L=31.0 H=37.0 RDW-SD 38.8 FL L=37.0 H=54.0 RDW-CV 12.9 % L=11.0 H=16.0 PLATELETS 335 K/UL L=140 H=380 MPV 9.6 FL L=9.0 H=13.0 %GRAN 67.6 % L=0.0 H=75.0 %LYMPH 19.1 % L=0.0 H=50.0 %MONO 9.1 % L=0.0 H=14.0 %EOS 2.7 % L=0.0 H=6.0 %BASO 1.5 % L=0.0 H=1.0 #GRAN 4.80 K/UL L=1.80 H=7.80 #LYMPH 1.36 K/UL L=0.30 H=4.00 #MONO 0.65 K/UL L=0.00 H=0.70 #EOS 0.19 K/UL L=0.00 H=0.40 #BASO 0.11 K/UL L=0.00 H=0.10 SLIDE REVIEWED? NOT INDICATED N/A MANUAL DIFF NOT INDICATED N/A Active Medications Medication Code Dose Units Frequency Route Modification Start Date/Time Tylenol ES 224878 2 TABLET THREE TIMES BY MOUTH 12/08/2014 500MG Oral A DAY 09:39 Tablet Atorvastatin 877958 20 MILLIGRAMS BEFORE BED ORAL 12/08/2014 Calcium 20MG 09:37 Oral Tablet Calcium 877193 600 MILLIGRAMS TWICE DAILY BY MOUTH 12/08/2014 Carbonate/Vitam W/FOOD 09:37 in D 600MG-400IU Oral Tablet Centrum 4181918 1 EACH DAILY ORAL 12/08/2014 [id number] 09:37 G-200 Oral Tablet Furosemide 20MG 543035 20 MILLIGRAMS DAILY ORAL 12/08/2014 Oral Tablet 09:37 HYDROcodone 430244 1 EACH NEEDED ORAL 12/08/2014 bitartrate-acet 09:37 aminophen 5MG-500MG Oral Tablet Levothyroxine 260017 125 MCG DAILY ORAL 12/08/2014 125MCG Oral 09:37 Tablet Lisinopril 783324 2.5 MILLIGRAMS DAILY ORAL 12/08/2014 2.5MG Oral 09:37 Tablet Metoprolol 792468 25 MILLIGRAMS DAILY ORAL 12/08/2014 Succinate 25MG 09:37 Oral Tablet, Extended Release Nitroglycerin 816100 0.4 MILLIGRAMS NEEDED SUBLINGUAL 12/08/2014 0.4MG 09:37 Sublingual Tablet Protonix 40MG 547428 40 MILLIGRAMS DAILY BY MOUTH 12/08/2014 Oral Tablet, BEFORE MEAL 09:37 Enteric Coated Sucralfate 1GM 949781 1 GM FOUR TIMES BY MOUTH 12/08/2014 Oral Tablet DAILY AC 09:37 Medications Administered During Visit Unknown or Not Available. Encounters Encounter Diagnosis Diagnosis Code Start Date ESOPHAGEAL REFLUX 41132 01/10/2015 Social History Smoking Status Code Start Date End Date Never smoker [id number] Patient Decision Aids Unknown or Not Available. Discharge Instructions You were admitted to [facility] on 01/10/2015 with a principal diagnosis of ESOPHAGEAL REFLUX. You had the following procedures done:UPPER GI SERIESBARIUM SWALLOW You were discharged from [facility] on 01/10/2015. Should you have any questions prior to [...]
--- OUTSIDE RECORDS SUMMARY | 2016-08-25 22:10 | XMS REPORT | CCD ---
:1930 Author Name IVELISSE PARISI Address [address] [facility] Unavailable [place], [place] [phone] Care Team Providers Name Role Phone MIAH [...] Resolved Date Status ACUTE SUBENDOCARDIAL INFARCTION, INITIAL 08683028 11/14/2012 Active EPISODE OF CARE HYPOTHYROIDISM 80192185 11/14/2012 Active GI bleeding 09383686 Active Results Unknown or Not Available. Active Medications Medication Code Dose Units Frequency Route Modification Start Date/Time Tylenol ES 500MG 841695 2 TABLET THREE TIMES A BY MOUTH 12/08/2014 Oral Tablet DAY 09:39 Prescription Detail TAKE 2 TABLET BY MOUTH THREE TIMES A DAY for arthritis pain Atorvastatin Calcium 20MG 847806 20 MILLIGRAMS BEFORE BED ORAL 2014 09:37 Oral Tablet Prescription Detail TAKE 20 MILLIGRAMS ORAL BEFORE BED Calcium 066568 600 MILLIGRAMS TWICE DAILY BY MOUTH 12/08/2014 09:37 Carbonate/Vitamin D W/FOOD 600MG-400IU Oral Tablet Prescription Detail TAKE 600 MILLIGRAMS BY MOUTH TWICE DAILY W/FOOD Centrum [id number] Oral Tablet 8961326 1 EACH DAILY ORAL 10/2014 09:37 Prescription Detail TAKE 1 EACH ORAL DAILY Furosemide 20MG Oral Tablet 118752 20 MILLIGRAMS DAILY ORAL 12/08/2014 09:37 Prescription Detail TAKE 20 MILLIGRAMS ORAL DAILY HYDROcodone bitartrate-acetaminophen 144862 1 EACH NEEDED ORAL 12/08 09:37 5MG-500MG Oral Tablet Prescription Detail TAKE 1 EACH ORAL NEEDED Levothyroxine 125MCG Oral Tablet 198575 125 MCG DAILY ORAL 12/08/2014 09:37 Prescription Detail TAKE 125 MCG ORAL DAILY Lisinopril 2.5MG Oral Tablet 041996 2.5 MILLIGRAMS DAILY ORAL 2014 09:37 Prescription Detail TAKE 2.5 MILLIGRAMS ORAL DAILY Metoprolol Succinate 25MG Oral 595776 25 MILLIGRAMS DAILY ORAL 2014 09:37 Tablet, Extended Release Prescription Detail TAKE 25 MILLIGRAMS ORAL DAILY Nitroglycerin 0.4MG 837817 0.4 MILLIGRAMS NEEDED SUBLINGUAL 2014 09:37 Sublingual Tablet Prescription Detail PLACE 0.4 MILLIGRAMS SUBLINGUAL NEEDED Protonix 40MG Oral [id number] MILLIGRAMS DAILY BEFORE MEAL BY MOUTH 10/2014 09:37 Tablet, Enteric Coated Prescription Detail TAKE 40 MILLIGRAMS BY MOUTH DAILY BEFORE MEAL Sucralfate 1GM Oral [id number] GM FOUR TIMES DAILY AC BY MOUTH 2014 09:37 Tablet Prescription Detail TAKE 1 GM BY MOUTH FOUR TIMES DAILY AC Medications Administered During Visit Unknown or Not Available. 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 Discharge Instructions You were admitted to [facility] on 10/12/2015 10:10 with a principal diagnosis of Primary osteoarthritis, right shoulder You were discharged from [facility] on 10/12/2015 10:10 Should you have any questions prior to [...]
--- OUTSIDE RECORDS SUMMARY | 2016-08-25 22:10 | XMS REPORT | CCD ---
:1930 Author Name YOSEPH SAUCEDO Address [address] [facility] Unavailable [place], [place] [id number] Care Team Providers Name Role Phone STAS JEAN Attending Physician Unavailable Vital Signs Unknown or Not Available. Allergies Allergy Code Allergy Type Reaction Status PCN (penicillin) 0 Drug allergy Active Procedures Unknown or Not Available. History of Immunizations Immunization Code Date pneumococcal, unspecified formulation 109 Unknown Problems Problem Code Start Date Resolved Date Status ACUTE SUBENDOCARDIAL INFARCTION, INITIAL 82180134 11/14/2012 Active EPISODE OF CARE HYPOTHYROIDISM 61041142 11/14/2012 Active GI bleeding 09892994 Active Results COMPREHENSIVE METABOLIC PANEL - Collect Date/Time: 12/14/2014 16:53 Test Name Code Test Result Test Units Test Ref Range GLUCOSE 106 mg/dL L=74 H=106 SODIUM 141 mmol/L L=136 H=145 POTASSIUM 3.6 mmol/L L=3.5 H=5.1 CHLORIDE 104 mmol/L L=98 H=107 CO2 28 mmol/L L=21 H=32 BUN 34.0 mg/dL L=7.0 H=18.0 CREATININE 1.4 mg/dL L=0.6 H=1.0 BUN/CREAT 24.3 L=7.6 H=21.2 CALCIUM 8.4 mg/dL L=8.6 H=10.1 TOTAL BILI 0.4 mg/dL L=0.2 H=1.0 TOTAL PROTEIN 6.0 g/dL L=6.4 H=8.2 ALBUMIN 3.0 g/dL L=3.4 H=5.0 A/G RATIO 1.0 ALKALINE PHOS 78 IU/L L=50 H=136 AST/SGOT 12 IU/L L=15 H=37 ALT/SGPT 15 IU/L L=12 H=78 ANION GAP 12.8 mmol/L L=7.0 H=16.0 AGE 84 YEARS GFR 38.08 ml/min CBC W/DIFF - Collect Date/Time: 12/14/2014 16:53 Test Name Code Test Result Test Units Test Ref Range WBC 6690-2 13.3 K/uL L=3.2 H=10.0 RBC 789-8 3.99 M/uL L=4.00 H=5.20 HEMOGLOBIN 718-7 12.0 g/dL L=12.1 H=15.6 HEMATOCRIT 35.0 % L=35.0 H=47.0 MCV 87.7 fL L=81.0 H=101 MCH 30.1 PG L=26.0 H=38.0 MCHC 34.3 G/DL L=31.0 H=37.0 RDW-SD 41.6 FL L=37.0 H=54.0 RDW-CV 13.6 % L=11.0 H=16.0 PLATELETS 359 K/UL L=140 H=380 MPV 9.8 FL L=9.0 H=13.0 %GRAN 73.3 % L=0.0 H=75.0 %LYMPH 14.8 % L=0.0 H=50.0 %MONO 8.7 % L=0.0 H=14.0 %EOS 2.3 % L=0.0 H=6.0 %BASO 0.9 % L=0.0 H=1.0 #GRAN 9.77 K/UL L=1.80 H=7.80 #LYMPH 1.97 K/UL L=0.30 H=4.00 #MONO 1.16 K/UL L=0.00 H=0.70 #EOS 0.30 K/UL L=0.00 H=0.40 #BASO 0.12 K/UL L=0.00 H=0.10 SLIDE REVIEWED? NOT INDICATED N/A MANUAL DIFF NOT INDICATED N/A Active Medications Medication Code Dose Units Frequency Route Modification Start Date/Time Tylenol ES 268282 2 TABLET THREE TIMES BY MOUTH 12/08/2014 500MG Oral A DAY 09:39 Tablet Atorvastatin 683510 20 MILLIGRAMS BEFORE BED ORAL 12/08/2014 Calcium 20MG 09:37 Oral Tablet Calcium 616819 600 MILLIGRAMS TWICE DAILY BY MOUTH 12/08/2014 Carbonate/Vitam W/FOOD 09:37 in D 600MG-400IU [facility] EACH DAILY [facility]AL 12/08/2014 [id number] 09:37 G-200 Oral Tablet Furosemide 20MG 634471 20 MILLIGRAMS DAILY ORAL 12/08/2014 Oral Tablet 09:37 HYDROcodone 262852 1 EACH NEEDED ORAL 12/08/2014 bitartrate-acet 09:37 aminophen 5MG-500MG Oral Tablet Levothyroxine 240267 125 MCG DAILY ORAL 12/08/2014 125MCG Oral 09:37 Tablet Lisinopril 114696 2.5 MILLIGRAMS DAILY ORAL 12/08/2014 2.5MG Oral 09:37 Tablet Metoprolol 560635 25 MILLIGRAMS DAILY ORAL 12/08/2014 Succinate 25MG 09:37 Oral Tablet, Extended Release Nitroglycerin 854626 0.4 MILLIGRAMS NEEDED SUBLINGUAL 12/08/2014 0.4MG 09:37 Sublingual Tablet Protonix 40MG 207922 40 MILLIGRAMS DAILY BY MOUTH 12/08/2014 Oral Tablet, BEFORE MEAL 09:37 Enteric Coated Sucralfate 1GM 293200 1 GM FOUR TIMES BY MOUTH 12/08/2014 Oral Tablet DAILY AC 09:37 Medications Administered During Visit Unknown or Not Available. Encounters Encounter Diagnosis Diagnosis Code Start Date ANEMIA NOS 2859 12/14/2014 Social History Smoking Status Code Start Date End Date Never smoker [id number] Patient Decision Aids Unknown or Not Available. Discharge Instructions You were admitted to [facility] on 12/14/2014 with a principal diagnosis of ANEMIA NOS. You were discharged from [facility] on 12/14/2014. Should you have any questions prior to [...]
--- OUTSIDE RECORDS SUMMARY | 2016-08-25 22:10 | XMS REPORT | CCD ---
:1930 Author Name YOSEPH SAUCEDO Address [address] Unavailable [place], [place] [id number] Care Team Providers Name Role Phone STAS JEAN Attending Physician Unavailable Vital Signs Unknown or Not Available. Allergies Allergy Code Allergy Type Reaction Status PCN (penicillin) 0 Drug allergy Active Procedures Procedure Code Procedure Type Date BONE MINERAL DENSITY STUDIES 8898 ICD-9 CM, Volume 3 11/10/2014 DEXA-BONE DENSITY AXIAL SKELETON [id number] SNOMED CT 11/10/2014 History of Immunizations Unknown or Not Available. Problems Problem Code Start Date Resolved Date Status ACUTE SUBENDOCARDIAL INFARCTION, INITIAL 78092872 11/14/2012 Active EPISODE OF CARE HYPOTHYROIDISM 54819111 11/14/2012 Active Results Unknown or Not Available. Active Medications Unknown or Not Available. Medications Administered During Visit Unknown or Not Available. Encounters Encounter Diagnosis Diagnosis Code Start Date BONE & CARTILAGE DIS NOS 94602 11/10/2014 Social History Smoking Status Code Start Date End Date Never smoker [id number] Patient Decision Aids Unknown or Not Available. Discharge Instructions You were admitted to [facility] on 11/10/2014 with a principal diagnosis of BONE & CARTILAGE DIS NOS. You had the following procedures done:BONE MINERAL DENSITY STUDIES You were discharged from [facility] on 11/10/2014. Should you have any questions prior to [...]
== END 2016-08-25 19:32 | disposition left against medical advice (07) ==
LOC: ER 18:42
DX: Z53.21 Procedure and treatment not carried out due to patient leaving prior to being seen by health care provider (principal)

== ENCOUNTER 2017-06-05 09:27 | Inpatient (IN) | payer MEDICARE, BC ==
[2017-06-05] MEDS ORDERED: NORMAL SALINE 1,000 ML IV ONE ×2 (10:09→12:50)
[2017-06-05] MEDS ORDERED: ONDANSETRON HCL/PF 2 MG/ML VIAL IV ONE (10:09)
--- NOTE | 2017-06-05 10:12 | ERNOTE ---
Medical Problem HPI - Narrative Date of Service: 06/05/17 - General Chief Complaint: Nausea/Vomiting Time Seen by Provider: 06/05/17 09:50 Source: patient, family, RN notes reviewed, long-term records Exam Limitations: no limitations - Immun/Allergies/Home Medications Immunizations: IMMUNIZATION HX Immunizations Up to Date Yes History of Influenza Vaccine Yes Allergies/Adverse Reactions: Allergies Penicillins Allergy (Verified 06/05/17 09:46) aspirin Adverse Reaction (Verified 06/05/17 09:46) NSAIDS (Non-Steroidal Anti-Inflamma Adverse Reaction (Verified 06/05/17 09:46) Home Medications: HOME MEDICATIONS Acetaminophen [Tylenol] 650 mg PO Q12H 10/05/15 [Last Taken 06/05/17] Aspirin [Aspirin Chewable] 81 mg PO DAILY 10/05/15 [Last Taken 06/05/17] Levothyroxine Sodium [Unithroid] 125 mcg PO DAILY 10/05/15 [Last Taken 06/05/17] Metoprolol Succinate [Toprol Xl] 25 mg PO DAILY 10/05/15 [Last Taken 06/04/17] tiZANidine HCL [Tizanidine HCl] 2 mg PO TID PRN 10/05/15 [Last Taken Unknown] Losartan Potassium [Cozaar] 25 mg PO DAILY 06/05/17 [Last Taken 06/05/17] Oxybutynin Chloride [Ditropan Xl] 10 mg PO DAILY 06/05/17 [Last Taken 06/05/17] Zolpidem Tartrate [Ambien] 5 mg PO HS PRN 06/05/17 [Last Taken 05/30/17] - History of Present History Narrative: Pt. comes in with c/o fever, nausea, vomiting, and diarrea for 36 hours. Pt. denies any SOB, CP, swelling, recent illness or injury. Pt. was given pepto bismol prior to arrival with no relief. Timing: constant Severity: severe Modifying Factors - (Improves): Present: other - none Modifying Factors - (Worsens): Present: other - none Review of Systems - Review of Systems Constitutional: Present: fever, weakness, fatigue, malaise. Absent: recent illness, chills EYE: Present: no symptoms reported ENT: Present: no symptoms reported Respiratory: Present: no symptoms reported. Absent: shortness of breath, cough , wheezing Cardiology: Present: no symptoms reported. Absent: chest pain, palpitations, edema Gastrointestinal/Abdominal: Present: nausea, vomiting, diarrhea. Absent: abdominal pain Musculoskeletal: Present: no symptoms reported. Absent: back pain, joint pain Skin: Present: no symptoms reported. Absent: rash, change in color Neurological: Present: no symptoms reported. Absent: dizziness/light-headedness , numbness, tingling All Other Systems: All systems neg except as marked - Patient's Past Medical History Patient History - Medical: GERD, Hypothyroidism, Osteoarthritis Patient History - Cardiac/Respiratory: Coronary Heart Disease, Hypertension, Myocardial Infarction Patient History - Cancer: No Hx of Cancer Patient History - Surgical Procedures: Appendectomy, Cardiac stent, Total Knee Replacement Patient History - Other: None - Family History Mother Family History - Medical: , No pertinent hx, Hypothyroidism Family History - Cardiac/Respiratory: Hypertension, Hyperlipidemia Father Family History - Medical: No pertinent hx - Social History Living Situations: assisted living Abuse History: No History of abuse Psych History: No pertinent hx - Immunizations Immunizations Up to Date: Yes History of Influenza Vaccine: Yes Physical Exam - Physical Exam General Appearance: Present: wd/wn, alert, no apparent distress Head Exam: Present: normal inspection, no evidence of injury, no tenderness w palpation Eye Exam: Normal inspection: bilateral, Conjunctivae pale: bilateral Ears, Nose, Throat: Present: normal ENT inspection, normal pharynx Neck: Present: normal inspection, nontender, supple, full range of motion. Absent: lymphadenopathy (R), lymphadenopathy (L) Respiratory: Present: no respiratory distress, normal breath sounds, no accessory muscle use, chest nontender, lungs clear Cardiovascular/Chest: Present: regular rate, rhythm, no murmur, normal peripheral pulses Back Exam: Present: normal inspection, normal range of motion, no CVA tenderness , no vertebral tenderness Extremity Exam: Present: normal inspection, non-tender, normal range of motion, no edema Neurological Exam: Present: alert, oriented, normal mood/affect, no motor/ sensory deficits Skin Exam: Present: cool/dry, pallor. Absent: skin rash ED Progress - Date and Time Seen: Date and Time: 06/05/17 16:[address] Gould and she recommends admitting pt. and having her placed on scheduled fluid and zofran - Results and Orders Patient's Lab Results:: I have reviewed the patient's lab results. - Vital Signs Patient's Vital Signs:: I have reviewed the patient's vital signs. Vital Signs: Vital Signs 06/05/17 09:36 Temperature 37.0 C Pulse Rate 93 Respiratory 16 Rate Blood Pressure 90/54 O2 Sat by Pulse 90 Oximetry - EKG EKG: other - sinus rhythm IVCD EKG read: Reviewed by me EKG Comments: interp by Dr Carver - X-Ray X-Ray #1 X-Ray: abdomen Interpretation: Reviewed by me X-ray Comments: non specific bowel gas X-Ray #2 X-Ray: chest Interpretation: Reviewed by me X-ray Comments: no acute CP process - Progress/Reassessment Chief Complaint: Nausea/Vomiting Progress:: Unchanged Departure Clinical Impression: Dehydration, Acute gastroenteritis Hypotension Qualifiers: Hypotension type: unspecified hypotension type Qualified Code(s): I95.9 - Hypotension, unspecified - Departure Disposition: [facility] Condition: Serious Referrals: Kathy Grace MD [Primary Care Provider] -
[2017-06-05 10:38] LABS: Hematocrit 44.4 % (37.0-47.0); Hemoglobin 15.3 gm/dL (12.5-16.0); Mean Cell Volume 89.9 fl (78-100); Mean Corpuscular Hgb Conc 34.5 g/dl (32-36); Mean Platelet Volume 9.6 fl (6.0-9.5); Neutrophil # 12.9 K/mm3 (1.3-6.0); Neutrophil % 83.5 % (42-75.0); Platelet Count 249 K/mm3 (150-450); Red Blood Count 4.94 M/mm3 (4.2-5.4); Red Cell Distribution Width 13.5 % (11.5-14.0); White Blood Count 15.4 K/mm3 (4.0-10.5)
[2017-06-05] MEDS ORDERED: ONDANSETRON HCL/PF 2 MG/ML VIAL ONE (10:38)
[2017-06-05 10:49] LABS: BUN/Creatinine Ratio 14.4 (9.0-21.6); Bilirubin, Total 0.5 mg/dL (0.0-1.1); Calcium * 8.5 mg/dL (7.9-10.9); Potassium 3.3 mmol/L (3.4-4.6); Total Protein 7.2 gm/dL (6.2-8.2)
[2017-06-05 11:01] LABS: Anion Gap 18.7 mmol/L (6.8-13.8); Carbon Dioxide 20.6 mmol/L (24-32.6)
[2017-06-05 11:24] LABS: Urine Bilirubin 1 mg/dl (NEGATIVE); Urine Blood Negative /ul (NEGATIVE); Urine Ketone Negative (NEGATIVE); Urine Nitrite Negative (NEGATIVE); Urine Protein 30 mg/dL (NEGATIVE); Urine Specific Gravity >=1.030 SP.GR. (1.005-1.010); Urine Urobilinogen Normal (NORMAL)
[2017-06-05 11:41] LABS: Urine Amorphous Sediment Moderate - 2+ (NONE-FEW); Urine Appearance Clear; Urine Bacteria 1+; Urine Color Dark Yellow; Urine RBC None Seen /hpf (0-5); Urine WBC None Seen /hpf (0-5)
[2017-06-05] MEDS ORDERED: CIPROFLOXACIN IN 5 % DEXTROSE 400 MG/200 ML BAG IV SCH (12:00)
[2017-06-05] MEDS ORDERED: metroNIDAZOLE/SODIUM CHLORIDE 500 MG/100 ML BAG IV SCH (12:00)
[2017-06-05] MEDS ORDERED: ACETAMINOPHEN 325 MG TABLET PO ONE (15:18)
[2017-06-05] MEDS ORDERED: ACETAMINOPHEN 325 MG TABLET ONE (15:26)
[2017-06-05 16:07] LABS: Anion Gap 17.6 mmol/L (6.8-13.8); BUN/Creatinine Ratio 16.6 (9.0-21.6); Calcium * 7.9 mg/dL (7.9-10.9); Carbon Dioxide 12.5 mmol/L (24-32.6); Estimated Creat Clear 15.3; Potassium 4.1 mmol/L (3.4-4.6)
[2017-06-05] MEDS ORDERED: ONDANSETRON HCL/PF 2 MG/ML VIAL IV PRN (16:51)
[2017-06-05] MEDS: NORMAL SALINE 1,000 ML IV PRN (17:53)
[2017-06-05] MEDS ORDERED: ZOLPIDEM TARTRATE 5 MG TABLET PO PRN (19:14)
--- NOTE | 2017-06-05 19:35 | HP ---
Chief Complaint - Chief Complaint Date of Service: 06/05/17 Time of Service: 19:32 Chief Complaint: Diarrhea History of Present Illness: Pt is an 87 y/o female of Dr. Grace who presented to the ER with complaints of "raging diarrhea," which comes on so fast she is unable to remain continent and has been wearing a depends, for the past 2-3 days. PMH is significant for CAD s/p sent, GERD, HLD, hypothyroidism, HTN, and OA. Denies any abdominal pain or blood per rectum, however occult stool in ER was positive. She endorses fever , fatigue, chills, and dizziness. Fever noted of 37.9 at 1200. Prior to arrival she took Pepto Bismal without relief. In the ER she was noted to have BP as low as 79/45 (56), HR 88 with fluctuating O2 saturations, dropping to high 80's with drop in BP. She was given a total of 2L NS with slight improvement of BP to the 100's, one dose of Cipro and Flagyl were given along with IV zofran. Abdominal and chest xray were without any abnormalities. Laboratory findings were notable for a white count of 15.3, lactic acid 1.6, BNP 3669, elevated BUN/ creat at 28/2.63, previously 16/.96 this past February. Negative C-diff and UA. Due to her advanced age and underlying co-morbidities she will be admitted to observation over night for acute gastritis, RYLAN, and dehydration requiring follow up with serial labs and IV hydration. - Patient's Past Medical History Patient History - Medical: GERD, Hypothyroidism, Osteoarthritis Patient History - Cardiac/Respiratory: Coronary Heart Disease, Hypertension, Myocardial Infarction Patient History - Cancer: No Hx of Cancer Patient History - Surgical Procedures: Appendectomy, Cardiac stent, Total Knee Replacement, Other - partial thyroidectomy Patient History - Other: None - Family History Family History:: no untoward family reactions to anesthesia, no familial bleeding tendencies, no family history of clotting disorders, no family history of premature - Family History Mother Family History - Medical: , No pertinent hx Family History - Cardiac/Respiratory: Hypertension, Hyperlipidemia Father Family History - Medical: No pertinent hx Family History - Cardiac/Respiratory: History Unknown Family History - Cancer: History Unknown - Social History Living Situations: assisted living Abuse History: No History of abuse Psych History: No pertinent hx Smoking Status: Never smoker Have you smoked in the past 12 months: No Alcohol Use: none Drug Use: none - Immunizations Immunizations Up to Date: Yes Hx Pneumococcal Vaccination: Yes History of Influenza Vaccine: Yes Review Of Systems (GEN) - Review of Systems Generalized/Overall Review: Present: No Symptoms Reported EENTM: Present: No Symptoms Reported Respiratory: Present: No Symptoms Reported Cardiac: Present: No Symptoms Reported Abdominal: Present: Diarrhea Genitourinary: Present: No Symptoms Reported Musculoskeletal: Present: No Symptoms Reported Neurological: Present: No Symptoms Reported Skin: Present: No Symptoms Reported Endocrine: Present: No Symptoms Reported Allergies/Adverse Reactions: Allergies Allergy/AdvReac Type Severity Reaction Status Date / Time Penicillins Allergy Verified 06/05/17 09:46 aspirin AdvReac Other Verified 06/05/17 17:56 NSAIDS (Non-Steroidal AdvReac Other Verified 06/05/17 17:56 Anti-Inflamma Home Medications: HOME MEDICATIONS Acetaminophen [Tylenol] 650 mg PO Q12H 10/05/15 [Last Taken 06/05/17 08:00] Aspirin [Aspirin Chewable] 81 mg PO DAILY 10/05/15 [Last Taken 06/05/17 08:00] Levothyroxine Sodium [Unithroid] 125 mcg PO DAILY 10/05/15 [Last Taken 06/05/17 08:00] Metoprolol Succinate [Toprol Xl] 25 mg PO DAILY 10/05/15 [Last Taken 06/04/17 20 :00] tiZANidine HCL [Tizanidine HCl] 2 mg PO TID PRN 10/05/15 [Last Taken Unknown] Arctic Relf Gel BID PRN 06/05/17 [Last Taken 06/04/17 20:00] Calcium Carbonate/Vitamin D3 [Caltrate 600 + D Soft Chew Tab] 1 each PO BID [Last Taken 06/05/17 08:00] Diclofenac Sodium [Voltaren] 100 gm TP PRN PRN 06/05/17 [Last Taken Unknown] Losartan Potassium [Cozaar] 25 mg PO DAILY 06/05/17 [Last Taken 06/05/17] Losartan Potassium [Cozaar] 25 mg PO DAILY 06/05/17 [Last Taken 06/05/17 07:00] Ondansetron [Zofran Odt] 4 mg PO PRN PRN 06/05/17 [Last Taken 06/04/17] Oxybutynin Chloride [Ditropan Xl] 10 mg PO DAILY 06/05/17 [Last Taken 06/05/17 08:00] Zolpidem Tartrate [Ambien] 5 mg PO HS PRN 06/05/17 [Last Taken 05/30/17 20:00] Exam - Exam Vital Signs: Vital Signs - Last Taken Temp 37.4 C 06/05/17 18:52 Pulse 86 06/05/17 18:52 Resp 20 06/05/17 18:52 BP 109/53 06/05/17 18:52 Pulse Ox 97 RA 06/05/17 19:01 Constitutional: Present: Alert, Oriented x3, Cooperative, No distress, Elderly ENT Exam: Present: hearing grossly normal Eye Exam: bilateral eye: normal inspection, PERRL Back Exam: Present: normal inspection, no CVA tenderness Respiratory: Present: chest non-tender, lungs clear, no respiratory distress, no accessory muscle use, decreased breath sounds Cardiovascular/Chest: Present: normal peripheral pulses, regular rate, rhythm, no chest tenderness, no edema, no gallop, no JVD, systolic murmur Peripheral Pulses: dorsalis-pedis (R): 2+, dorsalis-pedis (L): 2+, radial (R): 2 +, radial (L): 2+ Abdomen: Present: Normal bowel sounds, soft, nontender, nondistended, no rebound tenderness, no hepatospenomegaly, no masses /Rectal: Present: Exam deferred Extremity: Present: normal range of motion, non-tender, normal inspection, no pedal edema, no calf tenderness, normal capillary refill Skin Exam: Present: normal color, warm/dry, no cyanosis Lymphatic: Present: no adenopathy Neurologic: Present: alert, normal mood/affect, oriented x 3 Appearance: Present: appropriate appearance, appropriate insight Eye contact: Present: cooperative Thoughts: Present: normal thought pattern Diagnostic Studies: Laboratory Results Laboratory Tests 06/05/17 06/05/17 06/05/17 10:20 10:20 10:20 WBC 15.4 H Hgb 15.3 Hct 44.4 Plt Count 249 Neutrophils # 12.9 H Plasma Sodium 135 Potassium 3.3 L Chloride 99 Anion Gap 18.7 H BUN 38 H D Creatinine 2.63 H D Lactic Acid, Venous 1.6 Total Bilirubin 0.5 AST 19 ALT 11 L B-Natriuretic Peptide Urine Ketones Urine Nitrate Ur Epithelial Cells Urine Bacteria Urine Culture Comments Stool Occult Blood Stl C.difficile Tox A&B 06/05/17 06/05/17 10:20 11:07 WBC Hgb Hct Plt Count Neutrophils # Plasma Sodium Potassium Chloride Anion Gap BUN Creatinine Lactic Acid, Venous Total Bilirubin AST ALT B-Natriuretic Peptide 3669 H Urine Ketones Negative Urine Nitrate Negative Ur Epithelial Cells 0-5 Urine Bacteria 1+ H Urine Culture Comments No culture indicated Stool Occult Blood Stl C.difficile Tox A&B negative 06/05/17 14:10 WBC Hgb Hct Plt Count Neutrophils # Plasma Sodium Potassium Chloride Anion Gap BUN Creatinine Lactic Acid, Venous Total Bilirubin AST ALT B-Natriuretic Peptide Urine Ketones Urine Nitrate Ur Epithelial Cells Urine Bacteria Urine Culture Comments Stool Occult Blood Positive H Stl C.difficile Tox A&B Assessment/Plan - Assessment/Plan (1) Acute gastroenteritis Assessment: Pt with complaints of 3 day history of diarrhea, unknown if viral or infectious in nature. More likely viral as has remained afebrile since admission. 37.9C at 1200. Lactic acid 1.6 on admission. Repeat CBC without evidence of leukocytosis , continue to remain hemodynamically stable following IV hydration. Will repeat labs in AM, received one dose of IV Cipro and Flagyl in ER, will hold off unless further evidence of infection arise. Continue IV Zofran PRN. Problem: Acute (2) Leukocytopenia, unspecified Assessment: Mild leukocytosis noted on admission labs of 15.3, repeat following IV hydration 10.4. Pt has remained afebrile since admission. Will repeat in the am. Problem: Acute (3) RYLAN (acute kidney injury) Assessment: Secondary to dehydration in the setting of acute gastritis and diarrhea. BUN/ Creat 34/2.05 on admission, improved to on repeat labs. Will continue to provided IV hydration overnight and repeat labs in am. Problem: Acute (4) Hyponatremia Assessment: Likely hypovolemic hyponatremia due to volume depletion. Na+ 135 on admission to 128 on repeat draw, which improved to 133 at 2300. Will repeat labs in am. Problem: Acute (5) Dehydration Assessment: Secondary to diarrhea-unclear whether infectious or viral at this point. No evidence of fever since arrival, slight leukocytosis which has improved with hydration. Has remained hemodynamically stable since admission. Will continue provide IV hydration overnight, continue to monitor VS. Problem: Acute (6) Hypotension Assessment: Secondary to dehydration, will hold Cozaar and Toprol-XL until BP stabilize. Continue to monitor and provide IV hydration over night. Problem: Acute Qualifiers: Hypotension type: unspecified hypotension type Qualified Code(s): I95.9 - Hypotension, unspecified (7) CAD (coronary artery disease) Assessment: Chronic. Holding ASA for positive occult stool, will reassess in the AM. Less likely acute GIB and more due to erosive nature of gastroenteritis and diarrhea. Problem: Chronic (8) GERD (gastroesophageal reflux disease) Assessment: Chronic Problem: Chronic Qualifiers: (9) HTN (hypertension) Assessment: Pt with hypotension on this admission in the setting of dehydration secondary to acute gastritis. Will hold Cozaar and Tropol-XL until Bmore hemodynamically stable. Problem: Chronic
[2017-06-05] MEDS: ACETAMINOPHEN 325 MG TABLET PO SCH (21:07)
[2017-06-05] MEDS: OXYBUTYNIN CHLORIDE 5 MG TABLET PO SCH (21:07)
[2017-06-05] MEDS ORDERED: DICLOFENAC SODIUM 100 APPL TUBE TP PRN (23:00)
[2017-06-05 23:19] LABS: Hematocrit 38.9 % (37.0-47.0); Mean Cell Volume 91.1 fl (78-100); Mean Corpuscular Hemoglobin 30.4 pg (27-31); Mean Corpuscular Hgb Conc 33.4 g/dl (32-36); Mean Platelet Volume 9.2 fl (6.0-9.5); Neutrophil # 8.6 K/mm3 (1.3-6.0); Neutrophil % 82.5 % (42-75.0); Platelet Count 196 K/mm3 (150-450); Red Blood Count 4.27 M/mm3 (4.2-5.4); Red Cell Distribution Width 13.6 % (11.5-14.0); White Blood Count 10.4 K/mm3 (4.0-10.5)
[2017-06-05 23:30] LABS: Anion Gap 13.4 mmol/L (6.8-13.8); BUN/Creatinine Ratio 19.4 (9.0-21.6); Calcium * 7.3 mg/dL (7.9-10.9); Carbon Dioxide 19.5 mmol/L (24-32.6); Estimated Creat Clear 16.3; Potassium 2.9 mmol/L (3.4-4.6)
[2017-06-06] MEDS: NORMAL SALINE 1,000 ML IV PRN ×3 (05:35→22:15)
[2017-06-06 05:52] LABS: Hematocrit 38.7 % (37.0-47.0); Mean Cell Volume 91.3 fl (78-100); Mean Corpuscular Hemoglobin 30.7 pg (27-31); Mean Corpuscular Hgb Conc 33.6 g/dl (32-36); Mean Platelet Volume 9.3 fl (6.0-9.5); Neutrophil # 7.8 K/mm3 (1.3-6.0); Neutrophil % 80.6 % (42-75.0); Platelet Count 200 K/mm3 (150-450); Red Blood Count 4.24 M/mm3 (4.2-5.4); Red Cell Distribution Width 13.5 % (11.5-14.0); White Blood Count 9.6 K/mm3 (4.0-10.5)
[2017-06-06 06:03] LABS: Anion Gap 14.1 mmol/L (6.8-13.8); BUN/Creatinine Ratio 19.7 (9.0-21.6); Calcium * 7.3 mg/dL (7.9-10.9); Carbon Dioxide 19.9 mmol/L (24-32.6)
[2017-06-06] MEDS ORDERED: LEVOTHYROXINE SODIUM 112 MCG TABLET PO SCH (07:00)
[2017-06-06] MEDS ORDERED: POTASSIUM CHLORIDE 100 ML IV SCH (07:30)
[2017-06-06] MEDS: ACETAMINOPHEN 325 MG TABLET PO SCH ×2 (08:04→20:32)
[2017-06-06] MEDS: CALCIUM CARBONATE/VITAMIN D3 1 TAB TABLET PO SCH ×2 (08:04→20:33)
[2017-06-06] MEDS: POTASSIUM CHLORIDE 20 MEQ TABLET.SA PO SCH ×2 (08:04→18:02)
[2017-06-06] MEDS: OXYBUTYNIN CHLORIDE 5 MG TABLET PO SCH ×2 (08:04→20:33)
[2017-06-06] MEDS: LEVOTHYROXINE SODIUM 125 MCG TABLET PO SCH (08:05)
--- NOTE | 2017-06-06 09:04 | DS ---
(1) RYLAN (acute kidney injury) Problem: Acute (2) Acute gastroenteritis Problem: Acute (3) Dehydration Problem: Acute (4) Hyponatremia Problem: Acute (5) Hypotension Problem: Acute Qualifiers: Hypotension type: unspecified hypotension type Qualified Code(s): I95.9 - Hypotension, unspecified Description of Stay: Renetta Barron, 87 y/o female , who was admitted on 06/05/2017 with complaints of "raging diarrhea," which comes on so fast she is unable to remain continent and has been wearing a depends, for the past 2-3 days. PMH is significant for CAD s/ p sent, GERD, HLD, hypothyroidism, HTN, and OA. Denied any abdominal pain or blood per rectum, however occult stool in ER was positive. She endorses fever, fatigue, chills, and dizziness. Fever noted of 37.9 at 1200. Prior to arrival she took Pepto Bismal without relief. In the ER she was noted to have BP as low as 79/45 (56), HR 88 with fluctuating O2 saturations, dropping to high 80's with drop in BP. She was given a total of 2L NS with slight improvement of BP to the 100's, one dose of Cipro and Flagyl were given along with IV zofran. Abdominal and chest xray were without any abnormalities. Laboratory findings were notable for a white count of 15.3, lactic acid 1.6, BNP 3669, elevated BUN/ creat at 28/2.63, previously 16/.96 this past February. Negative C-diff and UA. Due to her advanced age and underlying co-morbidities she was admitted to observation over night for acute gastroenteritis, RYLAN, and dehydration and was startged on IVF replacement. Her WBC went back to normal suggesting this could have been just to dehydration. Her Cr improved. She is still having diarrhea and is still feeling weak. Will reasses her this afternoon and clinically feeling better and VS are hemodynamically better Dr. Gould will discharge her. If not , will admit to acute for further treatment. Procedures Performed: none Discharge Disposition: [facility] Disposition: [facility] Condition: Stable Discharge Activity: Activity as tolerated Discharge Diet: Full Liquids Referrals: Kathy Grace MD [Primary Care Provider] - Additional Patient Instructions (free text): TCM appointment unless prison discharge. Thank you! Lily @ [phone]. Complete Home Medications List: Complete Home Medication List: Acetaminophen [Tylenol] 650 mg PO Q12H 10/05/15 Aspirin [Aspirin Chewable] 81 mg PO DAILY 10/05/15 Levothyroxine Sodium [Unithroid] 125 mcg PO DAILY 10/05/15 Metoprolol Succinate [Toprol Xl] 25 mg PO DAILY 10/05/15 tiZANidine HCL [Tizanidine HCl] 2 mg PO TID PRN 10/05/15 Arctic Relf Gel BID PRN 06/05/17 Calcium Carbonate/Vitamin D3 [Caltrate 600 + D Soft Chew Tab] 1 each PO BID Diclofenac Sodium [Voltaren] 100 gm TP PRN PRN 06/05/17 Losartan Potassium [Cozaar] 25 mg PO DAILY 06/05/17 Losartan Potassium [Cozaar] 25 mg PO DAILY 06/05/17 Ondansetron [Zofran Odt] 4 mg PO PRN PRN 06/05/17 Oxybutynin Chloride [Ditropan Xl] 10 mg PO DAILY 06/05/17 Zolpidem Tartrate [Ambien] 5 mg PO HS PRN 06/05/17
[2017-06-07 05:56] LABS: Anion Gap 13.7 mmol/L (6.8-13.8); BUN/Creatinine Ratio 17.8 (9.0-21.6); Carbon Dioxide 21.3 mmol/L (24-32.6); Estimated Creat Clear 31.6
[2017-06-07] MEDS: NORMAL SALINE 1,000 ML IV PRN (06:37)
[2017-06-07] MEDS: LEVOTHYROXINE SODIUM 125 MCG TABLET PO SCH (06:39)
[2017-06-07] MEDS: ACETAMINOPHEN 325 MG TABLET PO SCH ×2 (08:35→20:06)
[2017-06-07] MEDS: POTASSIUM CHLORIDE 20 MEQ TABLET.SA PO SCH (08:35)
[2017-06-07] MEDS: tiZANidine HCL 4 MG TABLET PO PRN (08:36)
[2017-06-07] MEDS: OXYBUTYNIN CHLORIDE 5 MG TABLET PO SCH ×2 (08:36→20:07)
[2017-06-07] MEDS: CALCIUM CARBONATE/VITAMIN D3 1 TAB TABLET PO SCH ×2 (08:36→20:06)
[2017-06-07] MEDS: ENOXAPARIN SODIUM 40 MG/0.4 ML SYRG SC SCH (09:57)
[2017-06-07] MEDS: PANTOPRAZOLE SODIUM 40 MG TABLET.EC PO SCH (13:45)
--- NOTE | 2017-06-07 18:53 | PN ---
Subjective - Date and Time Seen Date: 06/07/17 Time: 10:25 Subjective Narrative: Patient seen and examined at bedside. No acute issues overnight. Patient continued to have watery diarrhea all day yesterday. She states that she feels like everything is just going right through her. As of this AM, she thinks her BMs may be starting to firm up. Objective - Review of Systems Generalized/Overall Review: Reports: Weakness, Fatigue EENTM: Reports: No Symptoms Reported Respiratory: Reports: No Symptoms Reported Cardiac: Reports: No Symptoms Reported Abdominal: Reports: Diarrhea Genitourinary Symptoms: Reports: No Symptoms Reported Musculoskeletal Complaints: Reports: No Symptoms Reported Neurological: Reports: No Symptoms Reported Skin: Reports: No Symptoms Reported Endocrine: Reports: No Symptoms Reported Misc: All systems neg except as marked - Vitals Vitals: Last Vital Signs Temp 36.6 C 06/07/17 18:21 Pulse 72 06/07/17 18:21 Resp 18 06/07/17 18:21 BP 140/70 06/07/17 18:21 Pulse Ox 97 06/07/17 18:21 - Abnormal Lab Findings Abnormal Lab Findings: Abnormal Lab Results 06/07/17 Range/Units 05:34 Chloride 111 H (97-106) mmol/L Carbon Dioxide 21.3 L (24-32.6) mmol/L - Exam Constitutional: Present: Alert, Oriented x3, Cooperative, Well developed, Well nourished, No distress, Elderly ENT Exam: Present: moist mucous membranes Respiratory: Present: lungs clear, normal breath sounds, no respiratory distress , no accessory muscle use Cardiovascular/Chest: Present: regular rate, rhythm Abdomen: Present: soft, nontender, nondistended Skin Exam: Present: warm/dry Neurologic: Present: alert, normal mood/affect, oriented x 3 Appearance: Present: appropriate appearance, appropriate insight, neat Eye contact: Present: cooperative, good eye contact Thoughts: Present: normal thought pattern, no apparent hallucination Assessment/Plan - Problems/Diagnosis (1) Acute gastroenteritis Problem: Acute Narrative: Continue conservative symptomatic treatment. Encouraged fluids. Advance diet as tolerated. (2) Hypotension Problem: Resolved Qualifiers: Hypotension type: unspecified hypotension type Qualified Code(s): I95.9 - Hypotension, unspecified (3) RYLAN (acute kidney injury) Problem: Acute Narrative: Secondary to intravascular volume depletion. Kidney function is improving with IVF hydration. Continue to monitor and recheck BMP in AM. Discontinue IVF today to insure patient is able to keep up adequate hydration on her own.
[2017-06-08 06:05] LABS: Hematocrit 37.9 % (37.0-47.0); Hemoglobin 12.9 gm/dL (12.5-16.0); Mean Cell Volume 89.2 fl (78-100); Mean Corpuscular Hemoglobin 30.4 pg (27-31); Mean Platelet Volume 9.4 fl (6.0-9.5); Platelet Count 226 K/mm3 (150-450); Red Blood Count 4.25 M/mm3 (4.2-5.4); Red Cell Distribution Width 13.3 % (11.5-14.0); White Blood Count 5.7 K/mm3 (4.0-10.5)
[2017-06-08 06:17] LABS: Anion Gap 15.2 mmol/L (6.8-13.8); BUN/Creatinine Ratio 9.6 (9.0-21.6); Calcium * 8.2 mg/dL (7.9-10.9); Carbon Dioxide 20.8 mmol/L (24-32.6)
[2017-06-08] MEDS: PANTOPRAZOLE SODIUM 40 MG TABLET.EC PO SCH (06:43)
[2017-06-08] MEDS: LEVOTHYROXINE SODIUM 125 MCG TABLET PO SCH (06:43)
[2017-06-08] MEDS: tiZANidine HCL 4 MG TABLET PO PRN (08:22)
[2017-06-08] MEDS: CALCIUM CARBONATE/VITAMIN D3 1 TAB TABLET PO SCH (08:22)
[2017-06-08] MEDS: OXYBUTYNIN CHLORIDE 5 MG TABLET PO SCH (08:22)
[2017-06-08] MEDS: ACETAMINOPHEN 325 MG TABLET PO SCH (08:23)
[2017-06-08] MEDS: ENOXAPARIN SODIUM 40 MG/0.4 ML SYRG SC SCH (08:23)
--- NOTE | 2017-06-08 08:50 | DS ---
(1) Acute gastroenteritis Problem: Acute (2) RYLAN (acute kidney injury) Problem: Resolved (3) Dehydration Problem: Resolved (4) Hyponatremia Problem: Resolved (5) Hypotension Problem: Resolved Qualifiers: Hypotension type: unspecified hypotension type Qualified Code(s): I95.9 - Hypotension, unspecified Description of Stay: ADMISSION DATE: 06/05/2017 DISCHARGE DATE: 06/08/2017 ADMISSION HPI: Pt is an 87 y/o female of Dr. Grace who presented to the ER with complaints of "raging diarrhea," which comes on so fast she is unable to remain continent and has been wearing a depends, for the past 2-3 days. PMH is significant for CAD s/p sent, GERD, HLD, hypothyroidism, HTN, and OA. Denies any abdominal pain or blood per rectum, however occult stool in ER was positive. She endorses fever , fatigue, chills, and dizziness. Fever noted of 37.9 at 1200. Prior to arrival she took Pepto Bismal without relief. In the ER she was noted to have BP as low as 79/45 (56), HR 88 with fluctuating O2 saturations, dropping to high 80's with drop in BP. She was given a total of 2L NS with slight improvement of BP to the 100's, one dose of Cipro and Flagyl were given along with IV zofran. Abdominal and chest xray were without any abnormalities. Laboratory findings were notable for a white count of 15.3, lactic acid 1.6, BNP 3669, elevated BUN/ creat at 28/2.63, previously 16/.96 this past February. Negative C-diff and UA. Due to her advanced age and underlying co-morbidities she will be admitted to observation over night for acute gastritis, RYLAN, and dehydration requiring follow up with serial labs and IV hydration. HOSPITAL COURSE: The patient was admitted to the hospital with hypotension and RYLAN, both of which are most likely secondary to intravascular volume depletion related to her diarrhea from a likely viral gastroenteritis. The patient was treated with IVF hydration and her hypotension and RYLAN resolved prior to discharge. FOLLOW-UP APPOINTMENTS: PCP within 1-2 weeks NEW OR CHANGED MEDICATIONS: None DISCONTINUED MEDICATIONS: None RADIOLOGY REPORTS: Single view CXR on 06/05/2017: No acute cardiopulmonary process. Flat with upright abdominal x-ray on 06/05/2017: Nonspecific bowel gas pattern. Procedures Performed: none Discharge Disposition: [facility] Disposition: [facility] Condition: Stable Discharge Activity: Activity as tolerated Discharge Diet: General/regular food, Resume usual diet Referrals: Kathy Grace MD [Primary Care Provider] - Problem Oriented Discharge Instructions to Patient/Family: Viral Gastroenteritis, Adult, [id number], Diarrhea, Adult, [id number] Additional Patient Instructions (free text): TCM appointment unless correction discharge. Thank you! Lily @ [phone]. Follow-up with PCP within 1-2 weeks Complete Home Medications List: Complete Home Medication List: Acetaminophen [Tylenol] 650 mg PO Q12H 10/05/15 Aspirin [Aspirin Chewable] 81 mg PO DAILY 10/05/15 Levothyroxine Sodium [Unithroid] 125 mcg PO DAILY 10/05/15 Metoprolol Succinate [Toprol Xl] 25 mg PO DAILY 10/05/15 tiZANidine HCL [Tizanidine HCl] 2 mg PO TID PRN 10/05/15 Arctic Relf Gel BID PRN 06/05/17 Calcium Carbonate/Vitamin D3 [Caltrate 600 + D Soft Chew Tab] 1 each PO BID Diclofenac Sodium [Voltaren] 100 gm TP PRN PRN 06/05/17 Losartan Potassium [Cozaar] 25 mg PO DAILY 06/05/17 Losartan Potassium [Cozaar] 25 mg PO DAILY 06/05/17 Ondansetron [Zofran Odt] 4 mg PO PRN PRN 06/05/17 Oxybutynin Chloride [Ditropan Xl] 10 mg PO DAILY 06/05/17 Zolpidem Tartrate [Ambien] 5 mg PO HS PRN 06/05/17
[2017-06-08 11:17] VITALS: BP 109/64
== END 2017-06-08 16:15 | disposition home or self-care (01) | DRG 392 ==
LOC: ER 09:27 → MS 16:38 → OBSVTOIN 06-06 14:48
PROVIDERS: ADMIT Internal Medicine; ATTEND Internal Medicine
DX: K52.9 Noninfective gastroenteritis and colitis, unspecified (principal); E87.1 Hypo-osmolality and hyponatremia; N17.9 Acute kidney failure, unspecified; E86.0 Dehydration; I95.9 Hypotension, unspecified; E03.9 Hypothyroidism, unspecified; K21.9 Gastro-esophageal reflux disease without esophagitis; I10 Essential (primary) hypertension; I25.10 Atherosclerotic heart disease of native coronary artery without angina pectoris; Z95.5 Presence of coronary angioplasty implant and graft; I25.2 Old myocardial infarction; Z79.82 Long term (current) use of aspirin

== ENCOUNTER 2019-12-02 18:44 | Observation (INO) ==
[2019-12-02] MEDS ORDERED: ONDANSETRON HCL/PF 2 MG/ML VIAL IV ONE (18:54)
[2019-12-02] MEDS ORDERED: NORMAL SALINE 1,000 ML IV ONE (18:56)
--- NOTE | 2019-12-02 18:58 | ERNOTE ---
<Elizabet Carver - Last Filed: 12/02/19 19:49> Abdominal HPI - General Chief Complaint: Abdominal Pain Time Seen by Provider: 12/02/19 18:45 Source: patient Exam Limitations: clinical condition - Immun/Allergies/Home Medications Immunizatons: IMMUNIZATION HX Immunizations Up to Date Yes History of Influenza Vaccine Yes Hx Pneumococcal Vaccination Yes Allergies/Adverse Reactions: Allergies Penicillins Allergy (Verified 12/02/19 23:23) unknown aspirin Adverse Reaction (Verified 12/02/19 23:23) Other GI bleed NSAIDS (Non-Steroidal Anti-Inflamma Adverse Reaction (Verified 12/02/19 23:23) Other GI bleed Home Medications: HOME MEDICATIONS tizanidine 2 mg tablet 2 mg PO TID PRN 05/14/18 [Last Taken Unknown] levothyroxine 125 mcg capsule 125 mcg PO QAM #90 cap 06/24/18 [Last Taken Unkn own] aspirin 81 mg tablet,delayed release 81 mg PO DAILY #90 tab 06/26/18 [Last Taken Unknown] trffzvgn-zwj-bmdrn acid 0.4 mg-lycopene 300 mcg-lutein 250 mcg tablet 1 tab PO DAILY 10/27/18 [Last Taken Unknown] loperamide 2 mg capsule 2 mg PO DAILY PRN cap 06/23/19 [Last Taken Unknown] diclofenac sodium 1 % topical gel 2 g TP TID PRN #100 g 08/11/19 [Last Taken Unknown] Acetaminophen [Arthritis Pain] 650 mg PO Q12H 12/02/19 [Last Taken Unknown] Calcium Carbonate/Vitamin D3 [Caltrate 600 + D Soft Chew Tab] 1 tab PO BID 12/02/19 [Last Taken Unknown] Carboxymethylcellulose Sodium [Refresh Tears] 1 drp EACHEYE BID 12/02/19 [Last Taken Unknown] Docusate Sodium 100 mg PO PRN PRN 12/02/19 [Last Taken Unknown] Ondansetron [Zofran Odt] 4 mg PO Q6H PRN 12/02/19 [Last Taken Unknown] Vit C/E/Zn/Coppr/Lutein/Zeaxan [Preservision Areds 2 Softgel] 1 cap PO DAILY 12/02/19 [Last Taken Unknown] - History of Present Illness Narrative: Patient is currently in the ER for abdominal pain and vomiting. She states that his symptoms started around 4 PM this afternoon, the pain has been constant involvement of her lower abdomen, denies any diarrhea, denies any prior abdominal problems. She has a history of appendectomy, not sure currently about other abdominal problems in the past . Is coming by EMS, initial O2 sats were normal, she received fentanyl and Zofran by EMS, O2 sats consequently dropped into the 80s. Patient is rather sedated from the fentanyl which limits her history. Date (Duration): 12/02/19 Time (Timing): 16:00 Timing: constant Quality: moderate Activities at Onset: none Associated Symptoms: Present: nausea, vomiting. Absent: fever/chills Prior Abdominal Problems: Present: none. Absent: recent trauma, similar symptoms Review of Systems - Review of Systems Constitutional: Absent: recent illness ENT: Absent: sore throat Respiratory: Absent: shortness of breath Cardiology: Absent: chest pain Gastrointestinal/Abdominal: Present: See HPI, nausea Genitourinary: Absent: frequency Neurological: Absent: headache Medical History (Last Reviewed 12/02/19 @ 19:02 by Elizabet Carver MD) GERD (gastroesophageal reflux disease) (Chronic) CAD (coronary artery disease) (Chronic) Primary osteoarthritis of both shoulders (Chronic) Onset Date: 09/19/17 Osteoporosis (Acute) Onset Date: Unknown Osteoarthritis (Chronic) Onset Date: Unknown Hypothyroidism (Acute) Onset Date: Unknown Hypertension (Acute) Onset Date: Unknown Hyperlipidemia (Acute) Onset Date: Unknown GERD (gastroesophageal reflux disease) (Acute) Onset Date: Unknown Cardiomyopathy (Acute) Onset Date: Unknown 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% CAD (coronary artery disease) (Acute) Onset Date: Unknown CAD with complex mid-LAD lesion status post overlapping VeriFLEX 3.5 x 12 and 2.75 x 12 mm bare-metal stents Hypothyroidism associated with surgical procedure (Chronic) HTN (hypertension) (Chronic) Surgical History: Surgical History (Last Reviewed 12/02/19 @ 19:02 by Elizabet Carver MD) History of appendectomy Onset Date: 1969 History of cardiac catheterization Onset Date: Unknown History of cataract surgery Onset Date: Unknown History of cholecystectomy Onset Date: Unknown History of colonoscopy Onset Date: 2004 History of heart artery stent Onset Date: Unknown History of hernia repair Onset Date: Unknown History of knee replacement procedure of right knee Onset Date: 2014 History of neck surgery Onset Date: Unknown History of thyroid surgery Onset Date: 1951 Family History: Family History (Last Reviewed 12/02/19 @ 18:57 by Larissa Alcaraz RN) Father No problems noted. Mother , at age 94 Cancer Brother , x4 No problems noted. Brother Cancer Diabetes Sister , 100 No problems noted. Social History: (Last Reviewed 12/02/19 @ 18:57 by Larissa Alcaraz RN) Social History: Marital status: / current occupational status: retired Service: No Tobacco: Smoking Status: Never smoker Alcohol: alcohol intake: never Substance Use: substance use type: does not use Dietary Habits: caffeine: Yes Type: coffee Physical Exam - Physical Exam General Appearance: Present: wd/wn, no apparent distress, anxious, lethargic Eye Exam: Normal inspection: bilateral Respiratory: Present: no respiratory distress, normal breath sounds, no accessory muscle use, chest nontender, lungs clear Cardiovascular/Chest: Present: regular rate, rhythm, no murmur, normal peripheral pulses Gastrointestinal/Abdominal: Present: normal bowel sounds, nondistended, soft, tenderness - throughout Back Exam: Present: normal inspection, no CVA tenderness Extremity Exam: Present: no edema Neurological Exam: Present: oriented, normal mood/affect, no motor/sensory deficits, other - slightly sedated Skin Exam: Present: normal color, warm/dry Progress - Results and Orders Patient's Lab Results:: I have reviewed the patient's lab results. - Vital Signs Patient's Vital Signs:: I have reviewed the patient's vital signs. - Vital Signs: Vital Signs 12/02/19 18:46 Temperature 37.3 C Pulse Rate 106 H Respiratory Rate 16 Blood Pressure 175/108 H O2 Sat by Pulse Oximetry 90 L - X-Ray X-Ray #1 X-Ray: abdomen - non obstructive bowel gas pattern Interpretation: Interp. by oh - Progress/Reassessment Chief Complaint: Abdominal Pain - Transfer of Care Physician Sign Out: Elizabet Carver Receiving Physician: Stephy Sandoval Expected Disposition: Admit Departure Clinical Impression: Hepatitis, Elevated liver enzymes - Departure Disposition: Short Term Hospital Inpatient Condition: Stable <Stephy Sandoval - Last Filed: 12/03/19 04:07> Abdominal HPI - Immun/Allergies/Home Medications Immunizatons: IMMUNIZATION HX Immunizations Up to Date Yes History of Influenza Vaccine Yes Hx Pneumococcal Vaccination Yes Medical History (Last Reviewed 12/02/19 @ 21:09 by Stephy Sandoval) GERD (gastroesophageal reflux disease) (Chronic) CAD (coronary artery disease) (Chronic) Primary osteoarthritis of both shoulders (Chronic) Onset Date: 09/19/17 Osteoporosis (Acute) Onset Date: Unknown Osteoarthritis (Chronic) Onset Date: Unknown Hypothyroidism (Acute) Onset Date: Unknown Hypertension (Acute) Onset Date: Unknown Hyperlipidemia (Acute) Onset Date: Unknown GERD (gastroesophageal reflux disease) (Acute) Onset Date: Unknown Cardiomyopathy (Acute) Onset Date: Unknown 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% CAD (coronary artery disease) (Acute) Onset Date: Unknown CAD with complex mid-LAD lesion status post overlapping VeriFLEX 3.5 x 12 and 2.75 x 12 mm bare-metal stents Hypothyroidism associated with surgical procedure (Chronic) HTN (hypertension) (Chronic) Surgical History: Surgical History (Last Reviewed 12/02/19 @ 21:09 by Stephy Sandoval) History of appendectomy Onset Date: 1969 History of cardiac catheterization Onset Date: Unknown History of cataract surgery Onset Date: Unknown History of cholecystectomy Onset Date: Unknown History of colonoscopy Onset Date: 2004 History of heart artery stent Onset Date: Unknown History of hernia repair Onset Date: Unknown History of knee replacement procedure of right knee Onset Date: 2014 History of neck surgery Onset Date: Unknown History of thyroid surgery Onset Date: 1951 Family History: Family History (Last Reviewed 12/02/19 @ 21:09 by Stephy Sandoval) Father No problems noted. Mother , at age 94 Cancer Brother , x4 No problems noted. Brother Cancer Diabetes Sister , 100 No problems noted. Social History: (Last Reviewed 12/02/19 @ 21:09 by Stephy Sandoval) Social History: Marital status: / current occupational status: retired Service: No Tobacco: Smoking Status: Never smoker Alcohol: alcohol intake: never Substance Use: substance use type: does not use Dietary Habits: caffeine: Yes Type: coffee Progress - Results and Orders Results and Orders: Laboratory Results - last 24 hr 12/02/19 12/02/19 12/02/19 19:11 19:11 19:11 WBC 8.3 RBC 5.03 Hgb 15.9 Hct 46.9 MCV 93.2 MCH 31.6 H MCHC 33.9 RDW 12.8 Plt Count 183 MPV 9.4 Immature Gran % (Auto) 2.20 H Immature Gran # (Auto) 0.18 H Neutrophils % 87.0 H Lymphocytes % 4.1 L Monocytes % 5.6 Eosinophils % 0.5 Basophils % 0.6 Nucleated RBC % 0.0 Neutrophils # 7.2 H Lymphocytes # 0.34 L Monocytes # 0.5 Eosinophils # 0.0 Absolute Basophils 0.1 PT 11.2 H INR (Anticoag Therapy) 1.14 H PTT ([place]) 26.2 Sodium 137 Plasma Sodium 138 Potassium 3.6 Chloride 102 Carbon Dioxide 27.0 Anion Gap 11.6 BUN 22 Creatinine 1.06 Est GFR (Non-Af Amer) 52 L BUN/Creatinine Ratio 20.8 Random Glucose 149 H Calcium 8.6 Calcium Adj for Albumin 8.8 Total Bilirubin 4.1 H AST 587 H ALT 546 H Alkaline Phosphatase 175 H Total Protein 7.1 Albumin 3.4 Amylase 55 Lipase 92 Urine Color Urine Appearance Urine pH Ur Specific [place] Urine Protein Urine Glucose (UA) Urine Ketones Urine Blood Urine Nitrate Urine Bilirubin Urine Ictotest Prot Sulfosalicylic Acd Urine Urobilinogen Ur Leukocyte Esterase Urine RBC Urine WBC Ur Epithelial Cells Urine Bacteria Urine Culture Comments 12/02/19 19:45 WBC RBC Hgb Hct MCV MCH MCHC RDW Plt Count MPV Immature Gran % (Auto) Immature Gran # (Auto) Neutrophils % Lymphocytes % Monocytes % Eosinophils % Basophils % Nucleated RBC % Neutrophils # Lymphocytes # Monocytes # Eosinophils # Absolute Basophils PT INR (Anticoag Therapy) PTT ([place]) Sodium Plasma Sodium Potassium Chloride Carbon Dioxide Anion Gap BUN Creatinine Est GFR (Non-Af Amer) BUN/Creatinine Ratio Random Glucose Calcium Calcium Adj for Albumin Total Bilirubin AST ALT Alkaline Phosphatase Total Protein Albumin Amylase Lipase Urine Color Dark yellow Urine Appearance Clear Urine pH 6.5 Ur Specific [place] 1.025 Urine Protein 15 H Urine Glucose (UA) Negative Urine Ketones 5 Urine Blood Negative Urine Nitrate Negative Urine Bilirubin 3 H Urine Ictotest Positive H Prot Sulfosalicylic Acd 1+ Urine Urobilinogen Normal Ur Leukocyte Esterase Negative Urine RBC 0-5 Urine WBC Trace H Ur Epithelial Cells Trace Urine Bacteria 2+ H Urine Culture Comments Culture to follow - Vital Signs Vital Signs: Vital Signs 12/02/19 18:46 12/02/19 19:52 12/02/19 20:02 Temperature 37.3 C Pulse Rate 106 H 92 91 Respiratory Rate 16 15 15 Blood Pressure 175/108 H 136/112 H 145/104 H O2 Sat by Pulse Oximetry 90 L 93 93 12/02/19 20:42 Temperature Pulse Rate 93 Respiratory Rate 15 Blood Pressure 150/75 H O2 Sat by Pulse Oximetry 91 L - X-Ray X-Ray #1 X-Ray: abdomen - Progress/Reassessment Progress Note-Subjective: 12/03/19 04:02 AT 21:[address] Garcia and spoke with her about the patient. We reviewed the patient's presentation, treatment both prior to arrival and here in the ED, and lab and radiology reports. She agreed to admit the patient tonight, with care to be turned over to the patient's primary care provider in the morning. I wrote perry in orders for tonight.
[2019-12-02 19:18] LABS: Hematocrit 46.9 % (37.0-47.0); Hemoglobin 15.9 gm/dL (12.5-16.0); Mean Cell Volume 93.2 fl (78-100); Mean Corpuscular Hemoglobin 31.6 pg (27-31); Mean Corpuscular Hgb Conc 33.9 g/dl (32-36); Mean Platelet Volume 9.4 fl (8-12.5); Neutrophil # 7.2 K/mm3 (1.3-6.0); Platelet Count 183 K/mm3 (150-450); Red Blood Count 5.03 M/mm3 (4.2-5.4); Red Cell Distribution Width 12.8 % (11.5-14.0); White Blood Count 8.3 K/mm3 (4.0-10.5)
[2019-12-02 19:30] LABS: Albumin * 3.4 gm/dl (3.4-5.0); Anion Gap 11.6 mmol/L (6.8-13.8); BUN/Creatinine Ratio 20.8 (9.0-21.6); Bilirubin, Total 4.1 mg/dL (0.0-1.1); Ca. Corrected For Albumin 8.8 mg/dL (8.4-10.2); Calcium * 8.6 mg/dL (7.9-10.9); Potassium 3.6 mmol/L (3.4-4.6); Total Protein 7.1 gm/dL (6.2-8.2)
[2019-12-02 19:53] LABS: Urine Bilirubin 3 mg/dl (NEGATIVE); Urine Blood Negative /ul (NEGATIVE); Urine Ketone 5 mg/dL (NEGATIVE); Urine Nitrite Negative (NEGATIVE); Urine Protein 15 mg/dL (NEGATIVE); Urine Specific Gravity 1.025 SP.GR. (1.005-1.010); Urine Urobilinogen Normal (NORMAL); Urine pH 6.5 pH (5.0-7.0)
[2019-12-02 20:11] LABS: Urine Appearance Clear (CLEAR); Urine Color Dark Yellow; Urine RBC 0-5 /hpf (0-5); Urine WBC TRACE /hpf (0-5)
[2019-12-02 20:12] LABS: Urine Bacteria 2+
[2019-12-02 20:36] LABS: Prothrombin Time (Patient) 11.2 Seconds (9.1-10.7)
[2019-12-02 20:37] LABS: INR 1.14 INR (0.92-1.08); Partial Thrombolplastin Time 26.2 Seconds (24-32)
[2019-12-03] MEDS ORDERED: ONDANSETRON 4 MG TAB.RAPDIS PO PRN (09:40)
[2019-12-03] MEDS ORDERED: DICLOFENAC SODIUM 100 APPL TUBE TP PRN ×2 (09:40→09:48)
[2019-12-03] MEDS ORDERED: DOCUSATE SODIUM 100 MG CAPSULE PO PRN (09:40)
[2019-12-03] MEDS ORDERED: tiZANidine HCL 4 MG TABLET PO PRN (09:40)
--- NOTE | 2019-12-03 09:45 | HPDIS ---
Chief Complaint - Chief Complaint Date of Service: 12/03/19 Time of Service: 09:05 Chief Complaint: Nausea, vomiting and lower abdominal pain x1 day History of Present Illness: 89-year-old female with a past medical history of coronary artery disease, cardiomyopathy with ejection fraction of 45%, GERD, hypertension, hyperlipidemia, hypothyroidism, osteoarthritis, osteoporosis presents from [facility] with complaints of nausea, vomiting and lower abdominal pain x1 day. On route to the hospital EMS gave the patient Zofran and fentanyl and her oxygen saturation dropped into the 80s. In the emergency department she was found to be very sedated and unable to provide a appropriate history. She was found to have a temperature 38.1, hypertensive with blood pressure 175/108, tachycardic with heart rate of 106, she had normal WBCs, total bilirubin of 4.1, AST of 587, ALT 546, alkaline phosphatase 175, normal amylase and lipase. Abdominal x-ray showed nonobstructive bowel gas pattern, large amount of colonic stool retention. She states her last bowel movement was yesterday. She states she has a h/o cholecystectomy. She was admitted due to needing oxygen supplementation. Medical History (Last Reviewed 12/02/19 @ 23:23 by Ora Baldwin RN) GERD (gastroesophageal reflux disease) (Chronic) CAD (coronary artery disease) (Chronic) Primary osteoarthritis of both shoulders (Chronic) Onset Date: 09/19/17 Osteoporosis (Chronic) Onset Date: Unknown Osteoarthritis (Chronic) Onset Date: Unknown Hypothyroidism (Acute) Onset Date: Unknown Hypertension (Chronic) Onset Date: Unknown Hyperlipidemia (Chronic) Onset Date: Unknown GERD (gastroesophageal reflux disease) (Chronic) Onset Date: Unknown Cardiomyopathy (Acute) Onset Date: Unknown 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% CAD (coronary artery disease) (Acute) Onset Date: Unknown CAD with complex mid-LAD lesion status post overlapping VeriFLEX 3.5 x 12 and 2.75 x 12 mm bare-metal stents Hypothyroidism associated with surgical procedure (Chronic) HTN (hypertension) (Chronic) Surgical History: Surgical History (Last Reviewed 12/02/19 @ 23:23 by Ora Baldwin RN) History of appendectomy Onset Date: 1969 History of cardiac catheterization Onset Date: Unknown History of cataract surgery Onset Date: Unknown History of cholecystectomy Onset Date: Unknown History of colonoscopy Onset Date: 2004 History of heart artery stent Onset Date: Unknown History of hernia repair Onset Date: Unknown History of knee replacement procedure of right knee Onset Date: 2014 History of neck surgery Onset Date: Unknown History of thyroid surgery Onset Date: 1951 Family History: Family History (Last Reviewed 12/02/19 @ 21:09 by Stephy Sandoval) Father No problems noted. Mother , at age 94 Cancer Brother , x4 No problems noted. Brother Cancer Diabetes Sister , 100 No problems noted. Social History: (Last Reviewed 12/02/19 @ 21:09 by Stephy Sandoval) Social History: Marital status: / current occupational status: retired Service: No Tobacco: Smoking Status: Never smoker Alcohol: alcohol intake: never Substance Use: substance use type: does not use Dietary Habits: caffeine: Yes Type: coffee Review Of Systems (GEN) - Review of Systems Generalized/Overall Review: Absent: Fever Respiratory: Absent: Shortness of Breath Cardiac: Absent: Chest Pain Abdominal: Present: Nausea, Vomiting, Abdominal Pain Misc: All systems neg except as marked Immunizations: IMMUNIZATION HX Immunizations Up to Date Yes History of Influenza Vaccine Yes Hx Pneumococcal Vaccination Yes Allergies/Adverse Reactions: Allergies Allergy/AdvReac Type Severity Reaction Status Date / Time Penicillins Allergy unknown Verified 12/02/19 23:23 aspirin AdvReac Other Verified 12/02/19 23:23 NSAIDS (Non-Steroidal AdvReac Other Verified 12/02/19 23:23 Anti-Inflamma Home Medications: HOME MEDICATIONS tizanidine 2 mg tablet 2 mg PO TID PRN 05/14/18 [Last Taken Unknown] levothyroxine 125 mcg capsule 125 mcg PO QAM #90 cap 06/24/18 [Last Taken Unknown] aspirin 81 mg tablet,delayed release 81 mg PO DAILY #90 tab 06/26/18 [Last Taken Unknown] drynzzqf-mpj-dszom acid 0.4 mg-lycopene 300 mcg-lutein 250 mcg tablet 1 tab PO DAILY 10/27/18 [Last Taken Unknown] diclofenac sodium 1 % topical gel 2 g TP TID PRN #100 g 08/11/19 [Last Taken Unknown] Acetaminophen [Arthritis Pain] 650 mg PO Q12H 12/02/19 [Last Taken Unknown] Calcium Carbonate/Vitamin D3 [Caltrate 600 + D Soft Chew Tab] 1 tab PO BID 12/02/19 [Last Taken Unknown] Carboxymethylcellulose Sodium [Refresh Tears] 1 drp EACHEYE BID 12/02/19 [Last Taken Unknown] Docusate Sodium 100 mg PO PRN PRN 12/02/19 [Last Taken Unknown] Ondansetron [Zofran Odt] 4 mg PO Q6H PRN 12/02/19 [Last Taken Unknown] Vit C/E/Zn/Coppr/Lutein/Zeaxan [Preservision Areds 2 Softgel] 1 cap PO DAILY 12/02/19 [Last Taken Unknown] Bismuth Subsalicylate [Pepto-Bismol] 262 mg PO DAILY PRN #20 tab.chew 12/03/19 [Last Taken Unknown] Exam - Exam Vital Signs: Vital Signs - Last Taken Temp 37.9 C 12/03/19 06:22 Pulse 111 H 12/03/19 06:22 Resp 17 12/03/19 06:22 BP 95/70 12/03/19 06:22 Pulse Ox 95 12/03/19 08:35 Constitutional: Present: Alert, Cooperative, Well developed, Well nourished, No distress, Elderly, Looks Younger than stated age ENT Exam: Present: hard of hearing Eye Exam: bilateral eye: normal inspection, EOMI Neck: Present: non-tender. Absent: lymphadenopathy (R), lymphadenopathy (L) Back Exam: Present: normal inspection, no CVA tenderness, no vertebral ten derness Respiratory: Present: lungs clear, no respiratory distress, no accessory muscle use, No wheezing. Absent: crackles, rhonchi Cardiovascular/Chest: Present: normal peripheral pulses, regular rate, rhythm, no edema, no murmur Peripheral Pulses: dorsalis-pedis (R): 1+, dorsalis-pedis (L): 1+ Abdomen: Present: Normal bowel sounds, soft, nontender Extremity: Present: no pedal edema Skin Exam: Present: normal color, warm/dry Neurologic: Present: alert, normal mood/affect Appearance: Present: appropriate appearance, appropriate insight Eye contact: Present: cooperative Thoughts: Present: normal mood /affect Diagnostic Studies: Abnormal Lab Results 12/02/19 12/02/19 12/02/19 Range/Units 19:11 19:11 19:11 MCH 31.6 H (27-31) pg Immature Gran % (Auto) 2.20 H (0.001-0.429) % Immature Gran # (Auto) 0.18 H (0.000-0.0310) K/mm3 Neutrophils % 87.0 H (42-75.0) % Lymphocytes % 4.1 L (20-51) % Neutrophils # 7.2 H (1.3-6.0) K/mm3 Lymphocytes # 0.34 L (1.5-3.5) k/mm3 PT 11.2 H (9.1-10.7) Seconds INR (Anticoag Therapy) 1.14 H (0.92-1.08) INR Est GFR (Non-Af Amer) 52 L (60-130) mL/min Random Glucose 149 H (70-110) mg/dL Total Bilirubin 4.1 H (0.0-1.1) mg/dL AST 587 H (0-48) U/L ALT 546 H (19-67) U/L Alkaline Phosphatase 175 H (50-170) U/L Urine Protein (NEGATIVE) mg/dL Urine Bilirubin (NEGATIVE) mg/dl Urine Ictotest (NEGATIVE) Urine WBC (0-5) /hpf Urine Bacteria (NONE) 12/02/19 Range/Units 19:45 MCH (27-31) pg Immature Gran % (Auto) (0.001-0.429) % Immature Gran # (Auto) (0.000-0.0310) K/mm3 Neutrophils % (42-75.0) % Lymphocytes % (20-51) % Neutrophils # (1.3-6.0) K/mm3 Lymphocytes # (1.5-3.5) k/mm3 PT (9.1-10.7) Seconds INR (Anticoag Therapy) (0.92-1.08) INR Est GFR (Non-Af Amer) (60-130) mL/min Random Glucose (70-110) mg/dL Total Bilirubin (0.0-1.1) mg/dL AST (0-48) U/L ALT (19-67) U/L Alkaline Phosphatase (50-170) U/L Urine Protein 15 H (NEGATIVE) mg/dL Urine Bilirubin 3 H (NEGATIVE) mg/dl Urine Ictotest Positive H (NEGATIVE) Urine WBC Trace H (0-5) /hpf Urine Bacteria 2+ H (NONE) Microbiology 12/02/19 19:45 Urine Culture - Preliminary Urine,Catheterized No Growth Laboratory Results WBC 8.3 K/mm3 (4.0-10.5) 12/02/19 19:11 RBC 5.03 M/mm3 (4.2-5.4) 12/02/19 19:11 Hgb 15.9 gm/dL (12.5-16.0) 12/02/19 19:11 Hct 46.9 % (37.0-47.0) 12/02/19 19:11 MCV 93.2 fl (78-100) 12/02/19 19:11 MCH 31.6 pg (27-31) H 12/02/19 19:11 MCHC 33.9 g/dl (32-36) 12/02/19 19:11 RDW 12.8 % (11.5-14.0) 12/02/19 19:11 Plt Count 183 K/mm3 (150-450) 12/02/19 19:11 MPV 9.4 fl (8-12.5) 12/02/19 19:11 Immature Gran % (Auto) 2.20 % (0.001-0.429) H 12/02/19 19:11 Immature Gran # (Auto) 0.18 K/mm3 (0.000-0.0310) H 12/02/19 19:11 Neutrophils % 87.0 % (42-75.0) H 12/02/19 19:11 Lymphocytes % 4.1 % (20-51) L 12/02/19 19:11 Monocytes % 5.6 % (0.0-9) 12/02/19 19:11 Eosinophils % 0.5 % (0.0-3.0) 12/02/19 19:11 Basophils % 0.6 % (0.0-1.0) 12/02/19 19:11 Nucleated RBC % 0.0 k/mm3 (0-1) 12/02/19 19:11 Neutrophils # 7.2 K/mm3 (1.3-6.0) H 12/02/19 19:11 Lymphocytes # 0.34 k/mm3 (1.5-3.5) L 12/02/19 19:11 Monocytes # 0.5 k/mm3 (0.0-1.0) 12/02/19 19:11 Eosinophils # 0.0 k/mm3 (0.0-0.7) 12/02/19 19:11 Absolute Basophils 0.1 k/mm3 (0.0-0.1) 12/02/19 19:11 PT 11.2 Seconds (9.1-10.7) H 12/02/19 19:11 INR (Anticoag Therapy) 1.14 INR (0.92-1.08) H 12/02/19 19:11 PTT (Caroline) 26.2 Seconds (24-32) 12/02/19 19:11 Sodium 137 mmol/L (132-142) 12/02/19 19:11 Plasma Sodium 138 mmol/L (130-142) 12/02/19 19:11 Potassium 3.6 mmol/L (3.4-4.6) 12/02/19 19:11 Chloride 102 mmol/L (97-106) 12/02/19 19:11 Carbon Dioxide 27.0 mmol/L (24-32.6) 12/02/19 19:11 Anion Gap 11.6 mmol/L (6.8-13.8) 12/02/19 19:11 BUN 22 mg/dL (3-23) 12/02/19 19:11 Creatinine 1.06 mg/dL (0.4-1.4) 12/02/19 19:11 Est GFR (Non-Af Amer) 52 mL/min (60-130) L 12/02/19 19:11 BUN/Creatinine Ratio 20.8 (9.0-21.6) 12/02/19 19:11 Random Glucose 149 mg/dL (70-110) H 12/02/19 19:11 Calcium 8.6 mg/dL (7.9-10.9) 12/02/19 19:11 Calcium Adj for Albumin 8.8 mg/dL (8.4-10.2) 12/02/19 19:11 Total Bilirubin 4.1 mg/dL (0.0-1.1) H 12/02/19 19:11 AST 587 U/L (0-48) H 12/02/19 19:11 ALT 546 U/L (19-67) H 12/02/19 19:11 Alkaline Phosphatase 175 U/L (50-170) H 12/02/19 19:11 Total Protein 7.1 gm/dL (6.2-8.2) 12/02/19 19:11 Albumin 3.4 gm/dl (3.4-5.0) 12/02/19 19:11 Amylase 55 U/L (25-115) 12/02/19 19:11 Lipase 92 U/L (73-393) 12/02/19 19:11 Urine Color Dark yellow 12/02/19 19:45 Urine Appearance Clear (CLEAR) 12/02/19 19:45 Urine pH 6.5 pH (5.0-7.0) 12/02/19 19:45 Ur Specific Mckee 1.025 SP.GR. (1.005-1.010) 12/02/19 19:45 Urine Protein 15 mg/dL (NEGATIVE) H 12/02/19 19:45 Urine Glucose (UA) Negative mg/dL (NEGATIVE) 12/02/19 19:45 Urine Ketones 5 mg/dL (NEGATIVE) 12/02/19 19:45 Urine Blood Negative /ul (NEGATIVE) 12/02/19 19:45 Urine Nitrate Negative (NEGATIVE) 12/02/19 19:45 Urine Bilirubin 3 mg/dl (NEGATIVE) H 12/02/19 19:45 Urine Ictotest Positive (NEGATIVE) H 12/02/19 19:45 Prot Sulfosalicylic Acd 1+ mg/dL (0) 12/02/19 19:45 Urine Urobilinogen Normal EU/dl (NORMAL) 12/02/19 19:45 Ur Leukocyte Esterase Negative /ul (NEGATIVE) 12/02/19 19:45 Urine RBC 0-5 /hpf (0-5) 12/02/19 19:45 Urine WBC Trace /hpf (0-5) H 12/02/19 19:45 Ur Epithelial Cells Trace /hpf (0-5) 12/02/19 19:45 Urine Bacteria 2+ (NONE) H 12/02/19 19:45 Urine Culture Comments Culture to follow 12/02/19 19:45 Assessment/Plan - Narrative Narrative: 89-year-old female with a past medical history of coronary artery disease, cardiomyopathy with ejection fraction of 45%, GERD, hypertension, hyperlipidemia, hypothyroidism, osteoarthritis, osteoporosis presents from [facility] with complaints of nausea, vomiting and lower abdominal pain x1 day. On route to the hospital EMS gave the patient Zofran and fentanyl and her oxygen saturation dropped into the 80s. In the emergency department she was found to be very sedated and unable to provide a appropriate history. She was found to have a temperature 38.1, hypertensive wit h blood pressure 175/108, tachycardic with heart rate of 106, she had normal WBCs, total bilirubin of 4.1, AST of 587, ALT 546, alkaline phosphatase 175, normal amylase and lipase. Abdominal x-ray showed nonobstructive bowel gas pattern, large amount of colonic stool retention. She states her last bowel movement was yesterday. She was admitted due to needing oxygen supplementation. She c/o of dizziness and was noted to have orthostatic BP. She does not take BP medications. Fall precautions were instituted. Plan #1 repeat CMP #2 wean off of oxygen #3 resume home medications #4 fall precautions - Assessment/Plan (1) Orthostatic hypotension Problem: Acute (2) Elevated liver enzymes Problem: Acute (3) Difficulty walking Problem: Chronic (4) CAD (coronary artery disease) Problem: Chronic Qualifiers: Coronary Disease-Associated Artery/Lesion type: [place] artery [place] vs. transplanted heart: [place] heart Associated angina: without angina Qualified Code(s): I25.10 - Atherosclerotic heart disease of [place] coronary artery without angina pectoris (5) Primary osteoarthritis of both shoulders Problem: Chronic (6) Osteoporosis Problem: Chronic (7) Hypertension Problem: Chronic Qualifiers: Hypertension type: essential hypertension Qualified Code(s): I10 - Essential (primary) hypertension (8) Hyperlipidemia Problem: Chronic Qualifiers: Hyperlipidemia type: unspecified Qualified Code(s): E78.5 - Hyperlipidemia, unspecified (9) GERD (gastroesophageal reflux disease) Problem: Chronic (10) Nausea and vomiting Problem: Acute (1) Orthostatic hypotension Problem: Acute (2) Elevated liver enzymes Problem: Acute (3) Difficulty walking Problem: Chronic (4) CAD (coronary artery disease) Problem: Chronic Qualifiers: Coronary Disease-Associated Artery/Lesion type: [place] artery [place] vs. transplanted heart: [place] heart Associated angina: without angina Qualified Code(s): I25.10 - Atherosclerotic heart disease of [place] coronary artery without angina pectoris (5) Primary osteoarthritis of both shoulders Problem: Chronic (6) Osteoporosis Problem: Chronic (7) Hypertension Problem: Chronic Qualifiers: Hypertension type: essential hypertension Qualified Code(s): I10 - Essential (primary) hypertension (8) Hyperlipidemia Problem: Chronic Qualifiers: Hyperlipidemia type: unspecified Qualified Code(s): E78.5 - Hyperlipidemia, unspecified (9) GERD (gastroesophageal reflux disease) Problem: Chronic (10) Nausea and vomiting Problem: Acute Hospital Course: 89-year-old female with a past medical history of coronary artery disease, cardiomyopathy with ejection fraction of 45%, GERD, hypertension, hyperlipidemia, hypothyroidism, osteoarthritis, osteoporosis presents from [facility] assisted living [facility] with complaints of nausea, vomiting and lower abdominal pain x1 day. On route to the hospital EMS gave the patient Zofran and fentanyl and her oxygen saturation dropped into the 80s. In the emergency department she was found to be very sedated and unable to provide a appropriate history. She was found to have a temperature 38.1, hypertensive with blood pressure 175/108, tachycardic with heart rate of 106, she had normal WBCs, total bilirubin of 4.1, AST of 587, ALT 546, alkaline phosphatase 175, normal amylase and lipase. Abdominal x-ray showed nonobstructive bowel gas pattern, large amount of colonic stool retention. She states her last bowel movement was yesterday. She was admitted due to needing oxygen supplementation. She c/o of dizziness and was noted to have orthostatic BP. She does not take BP medications. Fall precautions were instituted. Today she states she feels better, and denies abdominal pain. She had half of her breakfast with no nausea or vomiting. Oxygen has been tapered off. She did get tested for COVID 19. He LFT's are downtrending. She will be discharged back to [facility] today and will follow-up with me within 1 week of discharge with a repeat CMP. Procedures Performed: none Results and Findings: Pending Mircobiology Results 12/02/19 19:45 Urine,Catheterized Urine Culture - Preliminary No Growth Lab Pending Results 12/02/19 19:11: WBC 8.3, RBC 5.03, Hgb 15.9, Hct 46.9, MCV 93.2, MCH 31.6 H, MCHC 33.9, RDW 12.8, Plt Count 183, MPV 9.4, Immature Gran % (Auto) 2.20 H, Immature Gran # (Auto) 0.18 H, Neutrophils % 87.0 H, Lymphocytes % 4.1 L, Monocytes % 5.6, Eosinophils % 0.5, Basophils % 0.6, Nucleated RBC % 0.0, Neutrophils # 7.2 H, Lymphocytes # 0.34 L, Monocytes # 0.5, Eosinophils # 0.0, Absolute Basophils 0.1 12/02/19 19:11: Sodium 137, Plasma Sodium 138, Potassium 3.6, Chloride 102, Carbon Dioxide 27.0, Anion Gap 11.6, BUN 22, Creatinine 1.06, Est GFR (Non-Af Amer) 52 L, BUN/Creatinine Ratio 20.8, Random Glucose 149 H, Calcium 8.6, Calcium Adj for Albumin 8.8, Total Bilirubin 4.1 H, AST 587 H, ALT 546 H, Alkaline Phosphatase 175 H, Total Protein 7.1, Albumin 3.4, Amylase 55, Lipase 92 12/02/19 19:11: PT 11.2 H, INR (Anticoag Therapy) 1.14 H, PTT (Perla) 26.2 12/02/19 19:45: Urine Color Dark yellow, Urine Appearance Clear, Urine pH 6.5, Ur Specific Mckee 1.025, Urine Protein 15 H, Urine Glucose (UA) Negative, Urine Ketones 5, Urine Blood Negative, Urine Nitrate Negative, Urine Bilirubin 3 H, Urine Ictotest Positive H, Prot Sulfosalicylic Acd 1+, Urine Urobilinogen Normal, Ur Leukocyte Esterase Negative, Urine RBC 0-5, Urine WBC Trace H, Ur Epithelial Cells Trace, Urine Bacteria 2+ H, Urine Culture Comments Culture to follow Discharge Location: [facility] Disposition: Home self-care Condition: Stable Discharge Activity: Activity as tolerated Discharge Diet: General/regular food Referrals: Marisel Alvarado MD [Primary Care Provider] - Additional Patient Instructions (free text): Follow up with me in 1 week and repeat labs with CMP at that time. Prescriptions (Any new or edited meds): Bismuth Subsalicylate [Pepto-Bismol] 262 mg PO DAILY PRN #20 tab.chew PRN Reason: Diarrhea Transmission Status: Pending to [facility] Complete Home Medications List: Complete Home Medication List: tizanidine 2 mg tablet 2 mg PO TID PRN 05/14/18 levothyroxine 125 mcg capsule 125 mcg PO QAM #90 cap 06/24/18 aspirin 81 mg tablet,delayed release 81 mg PO DAILY #90 tab 06/26/18 roogpbyg-lqc-gtmid acid 0.4 mg-lycopene 300 mcg-lutein 250 mcg tablet 1 tab PO DAILY 10/27/18 diclofenac sodium 1 % topical gel 2 g TP TID PRN #100 g 08/11/19 Acetaminophen [Arthritis Pain] 650 mg PO Q12H 12/02/19 Calcium Carbonate/Vitamin D3 [Caltrate 600 + D Soft Chew Tab] 1 tab PO BID 12/02/19 Carboxymethylcellulose Sodium [Refresh Tears] 1 drp EACHEYE BID 12/02/19 Docusate Sodium 100 mg PO PRN PRN 12/02/19 Ondansetron [Zofran Odt] 4 mg PO Q6H PRN 12/02/19 Vit C/E/Zn/Coppr/Lutein/Zeaxan [Preservision Areds 2 Softgel] 1 cap PO DAILY 12/02/19 Bismuth Subsalicylate [Pepto-Bismol] 262 mg PO DAILY PRN #20 tab.chew 12/03/19
[2019-12-03] MEDS ORDERED: CALCIUM CARBONATE/VITAMIN D3 1 TAB TABLET PO SCH (10:00)
[2019-12-03] MEDS ORDERED: LEVOTHYROXINE SODIUM 125 MCG TABLET PO SCH (10:00)
[2019-12-03] MEDS ORDERED: ACETAMINOPHEN 650 MG TABLET PO SCH (10:00)
[2019-12-03 10:13] LABS: Albumin * 2.8 gm/dl (3.4-5.0); Anion Gap 8.7 mmol/L (6.8-13.8); Bilirubin Direct 1.6 mg/dL (0.0-0.3); Bilirubin, Total 2.4 mg/dL (0.0-1.1); Ca. Corrected For Albumin 8.8 mg/dL (8.4-10.2); Calcium * 8.2 mg/dL (7.9-10.9); Potassium 3.7 mmol/L (3.4-4.6); Total Protein 6.3 gm/dL (6.2-8.2)
[2019-12-03 16:29] VITALS: BP 101/56
== END 2019-12-03 16:29 | disposition home or self-care (01) ==
LOC: ER 18:44 → MS 18:44
PROVIDERS: ADMIT Family Medicine; ATTEND Internal Medicine
DX: K21.9 Gastro-esophageal reflux disease without esophagitis; I10 Essential (primary) hypertension; M19.012 Primary osteoarthritis, left shoulder; I95.1 Orthostatic hypotension; R50.9 Fever, unspecified; M19.011 Primary osteoarthritis, right shoulder; E03.9 Hypothyroidism, unspecified; R11.2 Nausea with vomiting, unspecified; R74.8 Abnormal levels of other serum enzymes; R09.02 Hypoxemia; I25.10 Atherosclerotic heart disease of native coronary artery without angina pectoris
CPT/HCPCS: 36415; 74019; 74020; 80053; 81001; 82150; 82248; 83690; 85025; 85610; 85730; 87081; 87086; 96361; 96374; 99283; 99285; C9803; G0378; J2405; U0001